=== PATIENT | female | born 1960 | race Caucasian/White ===

== ENCOUNTER 2016-10-16 14:42 | Outpatient (CLI) | payer MEDICARE | END 2016-10-16 14:43 | disposition home or self-care (01) | DX: R07.89 Other chest pain (principal); R06.02 Shortness of breath; R00.2 Palpitations; E78.00 Pure hypercholesterolemia, unspecified; R06.83 Snoring; F17.200 Nicotine dependence, unspecified, uncomplicated ==

== ENCOUNTER 2016-10-22 15:48 | Outpatient (CLI) | payer MEDICARE | END 2016-10-22 15:49 | disposition home or self-care (01) | DX: R23.3 Spontaneous ecchymoses (principal) ==

== ENCOUNTER 2016-10-31 14:31 | Outpatient (CLI) | payer MEDICARE | END 2016-10-31 14:32 | disposition home or self-care (01) | DX: L08.89 Other specified local infections of the skin and subcutaneous tissue (principal) ==

== ENCOUNTER 2016-11-27 10:11 | Outpatient (CLI) | payer MEDICARE | END 2016-11-27 10:12 | disposition home or self-care (01) | DX: R23.3 Spontaneous ecchymoses (principal) ==

== ENCOUNTER 2016-11-30 21:09 | Emergency (ER) | payer MEDICARE ==
[2016-11-30] MEDS ORDERED: ONDANSETRON 4 MG/2 ML VIAL IVP STA (21:28)
[2016-11-30] MEDS ORDERED: HYDROmorphone 1 MG/ML SYRINGE IVP STA (21:28)
[2016-11-30] MEDS ORDERED: SODIUM CHLORIDE 0.9% 1,000 ML IV ONE ×2 (21:28→21:36)
[2016-11-30] MEDS ORDERED: ONDANSETRON 4 MG/2 ML VIAL ONE (21:36)
[2016-11-30] MEDS ORDERED: HYDROmorphone 1 MG/ML SYRINGE ONE (21:36)
[2016-11-30] MEDS ORDERED: IOPAMIDOL-300 100 ML VIAL IVP ONE (22:35)
== END 2016-11-30 23:35 | disposition home or self-care (01) ==
DX: R10.30 Lower abdominal pain, unspecified (principal); R03.0 Elevated blood-pressure reading, without diagnosis of hypertension; K57.30 Diverticulosis of large intestine without perforation or abscess without bleeding; Z87.442 Personal history of urinary calculi; Z85.3 Personal history of malignant neoplasm of breast; F17.200 Nicotine dependence, unspecified, uncomplicated
CPT/HCPCS: 36415; 71275; 74174; 80053; 81003; 83690; 85025; 96361; 96374; 96375; 99284; 99285; J1170; Q9967

== ENCOUNTER 2016-12-04 09:23 | Outpatient (CLI) | payer MEDICARE | END 2016-12-04 09:24 | disposition home or self-care (01) | DX: R19.7 Diarrhea, unspecified (principal) ==

== ENCOUNTER 2017-01-06 15:09 | Outpatient (CLI) | payer MEDICARE | END 2017-01-06 15:10 | disposition home or self-care (01) | DX: J42 Unspecified chronic bronchitis (principal) ==

== ENCOUNTER 2017-05-06 09:47 | Outpatient (CLI) | payer MEDICARE ==
[2017-05-06 13:22] LABS: ALBUMIN/GLOBULIN RATIO 1.4 (1.0-2.2); BILIRUBIN,TOTAL 0.4 mg/dL (0.2-1.0); CALCIUM 9.2 mg/dL (8.5-10.3); CREATININE 0.6 mg/dL (0.4-1.0); POTASSIUM 4.1 mmol/L (3.5-5.0); TOTAL PROTEIN 7.7 g/dL (6.7-8.2)
[2017-05-06 13:26] LABS: BASOPHILS # (AUTO) 0.1 10^3/uL (0.0-0.1); BASOPHILS % (AUTO) 0.8 %; EOSINOPHILS # (AUTO) 0.1 10^3/uL (0.0-0.7); EOSINOPHILS % (AUTO) 1.5 %; HCT - HEMATOCRIT 41.7 % (37.0-47.0); HGB - HEMOGLOBIN 14.1 g/dL (12.0-16.0); LYMPHOCYTES # (AUTO) 1.4 10^3/uL (1.5-3.5); LYMPHOCYTES % (AUTO) 21.4 %; MEAN CORPUSCULAR HEMOGLOBIN 29.5 pg (27.0-31.0); MEAN CORPUSCULAR HGB CONC 33.9 g/dL (32.0-36.0); MEAN CORPUSCULAR VOLUME 86.9 fL (81.0-99.0); MEAN PLATELET VOLUME 8.5 fL (7.9-10.8); MONOCYTES # (AUTO) 0.4 10^3/uL (0.0-1.0); MONOCYTES % (AUTO) 6.3 %; NEUTROPHILS # (AUTO) 4.6 10^3/uL (1.5-6.6); RED CELL DISTRIBUTION WIDTH 13.9 % (12.0-15.0); UNCORRECTED WHITE BLOOD COUNT 6.5 x10^3/uL; WHITE BLOOD COUNT 6.5 x10^3/uL (4.8-10.8)
[2017-05-06 13:45] LABS: THYROID STIMULATING HORMONE 0.9 uIU/mL (0.34-5.60)
== END 2017-05-06 09:48 | disposition home or self-care (01) ==
LOC: LAB.N 09:47
PROVIDERS: ATTEND Family Medicine
DX: R19.7 Diarrhea, unspecified (principal); E03.9 Hypothyroidism, unspecified
CPT/HCPCS: 36415; 80053; 83630; 83690; 84439; 84443; 85025; 87045; 87046; 87493

== ENCOUNTER 2017-05-19 17:28 | Emergency (ER) | payer MEDICARE ==
--- NOTE | 2017-05-19 18:08 | ED Physician Documentation ---
PD HPI ABD PAIN - Stated complaint Stated Complaint: ABD PX/DIARRHEA - Chief complaint Chief Complaint: Abd Pain - History obtained from History obtained from: Patient - History of Present Illness Timing - onset: Other (She had a remote history of C. difficile. About 2 weeks ago developed abdominal pain in the left lower quadrant and diarrhea. She was seen in the office and had normal blood work, a stool sample with a negative culture and a negative C. difficile test. She was put on an antibiotic, I think cephalexin from her description. She continues to have increasing pain and strange diarrhea several times a day. There is some low-grade fever and aches with it as well. Of note she had a CT scan for another condition several months ago which did show colonic diverticula.) Review of Systems Ten Systems: 10 systems reviewed and negative Constitutional: reports: Fever, Myalgias, Fatigue Nose: denies: Rhinorrhea / runny nose, Congestion Cardiac: denies: Chest pain / pressure, Palpitations Respiratory: denies: Dyspnea, Cough GI: reports: Abdominal Pain, Nausea, Diarrhea. 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 : Kidney stones Psych: Depression - Past Surgical History Past Surgical History: Yes /AGRICULTURAL EDUCATION PROFESSOR: Tubal ligation, Other - Present Medications Home Medications: Ambulatory Orders Medication Instructions Recorded Confirmed Sertraline [Zoloft] 200 mg PO DAILY 07/02/13 11/30/16 Naproxen 500 mg PO .FREQ 07/02/15 11/30/16 Ciprofloxacin HCl [Cipro] 500 mg PO BID #14 tablet 05/19/17 Metronidazole [Flagyl] 500 mg PO TID #21 tablet 05/19/17 - Allergies Allergies/Adverse Reactions: Allergies Allergy/AdvReac Type Severity Reaction Status Date / Time Penicillins Allergy Itching Verified 05/19/17 17:36 Sulfa (Sulfonamide Allergy Unknown Verified 05/19/17 17:36 Antibiotics) - Social History Does the pt smoke?: Yes Smoking Status: Current every day smoker Does the pt drink ETOH?: No Does the pt have substance abuse?: No - Family History Family history: reports: Non contributory - Immunizations Immunizations are current?: No - POLST Patient has POLST: No PD ED PE NORMAL - Vitals Vital signs reviewed: Yes - General General: Alert and oriented X 3, No acute distress - HEENT HEENT: PERRL, EOMI - Neck Neck: Supple, no meningeal sign, No bony TTP - Cardiac Cardiac: RRR, No murmur - Respiratory Respiratory: No respiratory distress, Clear bilaterally - Abdomen Abdomen: Other (Hyperactive bowel tones, soft, focally tender in the left lower quadrant without surgical signs.) - Derm Derm: No rash - Extremities Extremities: No edema, No calf tenderness / cord - Neuro Neuro: Alert and oriented X 3, Normal speech - Psych Psych: Normal mood, Normal affect Results - Vitals Vitals: Vital Signs - 24 hr 05/19/17 05/19/17 17:30 21:02 Temperature 36.3 C L Heart Rate 88 83 Respiratory 18 18 Rate Blood Pressure 130/85 H 127/80 O2 Saturation 97 100 Oxygen O2 Source Room air - Labs Labs: Laboratory Tests 05/19/17 05/19/17 05/19/17 18:13 18:13 18:50 WBC 6.3 RBC 4.61 Hgb 13.5 Hct 39.6 MCV 86.0 MCH 29.4 MCHC 34.1 RDW 13.6 Plt Count 231 MPV 8.3 Neut # 4.4 Lymph # 0.9 L [place] # 0.6 Eos # 0.1 Baso # 0.2 H Absolute Nucleated RBC 0.00 Nucleated RBCs 0.1 Sodium 135 Potassium 3.8 Chloride 101 Carbon Dioxide 28 Anion Gap 6.0 BUN 11 Creatinine 0.6 Estimated GFR (MDRD) 104 Glucose 105 H Calcium 8.9 Total Bilirubin 0.5 AST 15 ALT 13 Alkaline Phosphatase 58 Total Protein 7.3 Albumin 4.1 Globulin 3.2 Albumin/Globulin Ratio 1.3 Lipase 22 Urine Color YELLOW Urine Clarity CLEAR Urine pH 6.0 Ur Specific [place] <=1.005 Urine Protein NEGATIVE Urine Glucose (UA) NEGATIVE Urine Ketones NEGATIVE Urine Occult Blood NEGATIVE Urine Nitrite NEGATIVE Urine Bilirubin NEGATIVE Urine Urobilinogen 0.2 (NORMAL) Ur Leukocyte Esterase NEGATIVE Ur Microscopic Review NOT INDICATED Urine Culture Comments NOT INDICATED - Rads (name of study) CT A/P Radiology: EMP read contemporaneously (Mild left colon diverticulitis without complication) PD MEDICAL DECISION MAKING - ED course ED course: 57-year-old woman with history of C. difficile and known diverticula presents with left lower quadrant pain and diarrhea that has failed treatment with a single PO Antibiotic, potentially Keflex but I am not 100% sure. Examination is most consistent with diverticulitis and this is proven on CT. She was unable to provide a stool sample here. Given recent negative C. difficile test I think it is unlikely that she has C. difficile in addition to diverticulitis. Departure - Departure Disposition: 01 Home, Self Care Clinical Impression: Diverticulitis of gastrointestinal tract Condition: Good Record reviewed to determine appropriate education?: Yes Instructions: Diverticulitis Dc Prescriptions: Ciprofloxacin HCl [Cipro] 500 mg PO BID #14 tablet Metronidazole [Flagyl] 500 mg PO TID #21 tablet Comments: Call your doctor to arrange a follow-up appointment, make the next available appointment. In the interim, return anytime if worse or if new symptoms develop. As discussed she will need to seek a referral for repeat colonoscopy in a few months. Your blood pressure was elevated today on check into the emergency department. This does not mean that you have hypertension, it is a common phenomenon to come to the emergency department and have elevated blood pressure. I recommend that she see your primary care physician within the week to have it rechecked when you are feeling better. Discharge Date/Time: 05/19/17 21:05
[2017-05-19 18:31] LABS: BASOPHILS # (AUTO) 0.2 10^3/uL (0.0-0.1); BASOPHILS % (AUTO) 3.9 %; EOSINOPHILS # (AUTO) 0.1 10^3/uL (0.0-0.7); EOSINOPHILS % (AUTO) 2.3 %; HCT - HEMATOCRIT 39.6 % (37.0-47.0); HGB - HEMOGLOBIN 13.5 g/dL (12.0-16.0); LYMPHOCYTES # (AUTO) 0.9 10^3/uL (1.5-3.5); LYMPHOCYTES % (AUTO) 13.6 %; MEAN CORPUSCULAR HEMOGLOBIN 29.4 pg (27.0-31.0); MEAN CORPUSCULAR HGB CONC 34.1 g/dL (32.0-36.0); MEAN PLATELET VOLUME 8.3 fL (7.9-10.8); MONOCYTES # (AUTO) 0.6 10^3/uL (0.0-1.0); MONOCYTES % (AUTO) 9.5 %; NEUTROPHILS # (AUTO) 4.4 10^3/uL (1.5-6.6); NEUTROPHILS % (AUTO) 70.7 %; NUCLEATED RED BLOOD CELLS AUTO 0.1 /100WBC; RED BLOOD COUNT 4.61 10^6/uL (4.20-5.40); RED CELL DISTRIBUTION WIDTH 13.6 % (12.0-15.0); UNCORRECTED WHITE BLOOD COUNT 6.3 x10^3/uL; WHITE BLOOD COUNT 6.3 x10^3/uL (4.8-10.8)
[2017-05-19 18:32] LABS: ALBUMIN/GLOBULIN RATIO 1.3 (1.0-2.2); BILIRUBIN,TOTAL 0.5 mg/dL (0.2-1.0); CALCIUM 8.9 mg/dL (8.5-10.3); CREATININE 0.6 mg/dL (0.4-1.0); POTASSIUM 3.8 mmol/L (3.5-5.0); TOTAL PROTEIN 7.3 g/dL (6.7-8.2)
[2017-05-19 19:25] LABS: BILIRUBIN,URINE NEGATIVE (NEGATIVE); UA CHARGE (STRIP ONLY) YES; UR CULTURE IF IND NOT INDICATED
[2017-05-19] MEDS ORDERED: IOPAMIDOL-300 100 ML VIAL IVP ONE (19:58)
--- NOTE | 2017-05-19 20:33 | CT Preliminary Report ---
Exam: CT Abdomen/Pelvis W/ IMPRESSION: CT findings likely business center representative of mild low left colon diverticulitis. There is no evid ence of perforation or pericolonic abscess. [facility] SITE ID: [id number]
--- NOTE | 2017-05-19 20:36 | CT Report ---
EXAM: CT ABDOMEN AND PELVIS EXAM DATE: 05/19/2017 08:00 PM. CLINICAL HISTORY: Abdominal pain COMPARISONS: None. TECHNIQUE: Routine helical CT imaging was performed through the abdomen and pelvis. IV contrast: Yes. Enteric contrast: No. Reconstructions: Coronal and sagittal. In accordance with CT protocol optimization, one or more of the following dose reduction techniques w ere utilized for this exam: automated exposure control, adjustment of mA and/or KV based on patient s ize, or use of iterative reconstructive technique. FINDINGS: Lung Bases: Unremarkable. Liver: Subcentimeter hypodensity within segment 8 of the liver is too small to characterize. No suspi cious hepatic abnormalities are seen. Gallbladder/Bile Ducts: Unremarkable. Spleen: Normal. Pancreas: Normal. Adrenal Glands: There is a subcentimeter left adrenal nodule. This most likely represents an adenoma. Kidneys: Normal. No masses or hydronephrosis. Peritoneal Cavity/Bowel: There is distal colon diverticulosis. There is mild fast draining adjacent t o the lower left colon. Stomach and small bowel demonstrate no acute abnormalities. No enlarged mesen teric or retroperitoneal lymph nodes. No intraperitoneal free air or free fluid. The appendix is well visualized and normal. Pelvic Organs: Normal. The bladder and visualized pelvic organs are within normal limits. Vasculature: No aneurysms or other significant abnormality. Bones: No significant abnormality. Other: None. IMPRESSION: CT findings likely accounts payable representative of mild low left colon diverticulitis. There is no evid ence of perforation or pericolonic abscess. [facility] Referring Provider Line: [phone] SITE ID: [id number]
[2017-05-19] MEDS ORDERED: CIPROFLOXACIN 250 MG TABLET PO STA (20:50)
[2017-05-19] MEDS ORDERED: metroNIDAZOLE 250 MG TABLET PO STA (20:50)
[2017-05-19] MEDS ORDERED: CIPROFLOXACIN 250 MG TABLET PO ONE (21:00)
[2017-05-19] MEDS ORDERED: metroNIDAZOLE 250 MG TABLET PO ONE (21:00)
[2017-05-19 21:02] VITALS: BP 127/80
== END 2017-05-19 21:05 | disposition home or self-care (01) ==
LOC: ED 17:28
DX: C50.919 Malignant neoplasm of unspecified site of unspecified female breast (principal); K57.92 Diverticulitis of intestine, part unspecified, without perforation or abscess without bleeding; R03.0 Elevated blood-pressure reading, without diagnosis of hypertension; F17.200 Nicotine dependence, unspecified, uncomplicated
CPT/HCPCS: 36415; 74177; 80053; 81003; 83690; 85025; 99283; 99284; A9270; Q9967; 81001; 87086

== ENCOUNTER 2017-08-21 13:31 | Outpatient (CLI) | payer MEDICARE ==
--- NOTE | 2017-08-26 14:01 | Mammography Report ---
DATE OF SERVICE: 08/21/2017 DIGITAL SCREENING MAMMOGRAM: 08/21/2017 CLINICAL INDICATION: A 57-year-old with personal history of left breast cancer status post lumpectom y and radiation therapy, family history of breast cancer, history of late childbearing for screening. COMPARISON: 08/2015, 03/2014, 01/2012, 12/2009. TECHNIQUE: Routine CC and MLO projections were obtained of the breasts. FINDINGS: The breasts again demonstrate heterogeneously dense fibroglandular parenchyma bilaterally. Coarse and punctate, typically benign calcifications are present. No suspicious masses, clustered microcalcifications, or regions of architectural distortion are identified. Postoperative and post-t reatment changes in the left breast are stable. IMPRESSION: Benign findings. RECOMMENDATIONS: Routine annual screening unless otherwise clinically indicated. BIRADS category 2 - Benign findings. STANDARD QUALIFYING STATEMENTS 1. This examination was reviewed with the aid of Computed-Aided Detection (CAD). 2. A negative or benign imaging report should not delay biopsy if clinically suspicious findings are present. Consider surgical consultation if warranted. More than 5% of cancers are not identified by imaging. 3. Dense breasts may obscure an underlying neoplasm. TD: 08/22/2017 22:25
== END 2017-08-21 13:32 | disposition home or self-care (01) ==
LOC: DI 13:31
PROVIDERS: ATTEND Nurse Practitioner Gerontology
DX: Z12.31 Encounter for screening mammogram for malignant neoplasm of breast (principal); Z85.3 Personal history of malignant neoplasm of breast; Z80.3 Family history of malignant neoplasm of breast
CPT/HCPCS: 77067

== ENCOUNTER 2017-09-25 08:00 | Outpatient (CLI) | payer MEDICARE ==
[2017-09-25 12:46] LABS: BASOPHILS # (AUTO) 0.1 10^3/uL (0.0-0.1); BASOPHILS % (AUTO) 0.9 %; EOSINOPHILS # (AUTO) 0.1 10^3/uL (0.0-0.7); EOSINOPHILS % (AUTO) 1.4 %; HGB - HEMOGLOBIN 14.4 g/dL (12.0-16.0); LYMPHOCYTES # (AUTO) 1.6 10^3/uL (1.5-3.5); LYMPHOCYTES % (AUTO) 27.6 %; MEAN CORPUSCULAR HEMOGLOBIN 29.7 pg (27.0-31.0); MEAN CORPUSCULAR HGB CONC 33.6 g/dL (32.0-36.0); MEAN CORPUSCULAR VOLUME 88.5 fL (81.0-99.0); MEAN PLATELET VOLUME 8.7 fL (7.9-10.8); MONOCYTES # (AUTO) 0.4 10^3/uL (0.0-1.0); NEUTROPHILS # (AUTO) 3.7 10^3/uL (1.5-6.6); NEUTROPHILS % (AUTO) 63.1 %; PLT - PLATELET COUNT 242 10^3/uL (130-450); RED BLOOD COUNT 4.84 10^6/uL (4.20-5.40); RED CELL DISTRIBUTION WIDTH 14.2 % (12.0-15.0); WHITE BLOOD COUNT 5.8 x10^3/uL (4.8-10.8)
[2017-09-25 13:30] LABS: CALCIUM 8.8 mg/dL (8.5-10.3); CREATININE 0.7 mg/dL (0.4-1.0)
== END 2017-09-25 08:01 | disposition home or self-care (01) ==
LOC: LAB.N 08:00
PROVIDERS: ATTEND Physician Assistant Medical
DX: R05 Cough (principal); F17.210 Nicotine dependence, cigarettes, uncomplicated; J20.9 Acute bronchitis, unspecified
CPT/HCPCS: 36415; 80048; 85025

== ENCOUNTER 2017-09-25 10:53 | Outpatient (CLI) | payer MEDICARE ==
--- NOTE | 2017-09-26 16:58 | XRAY Report ---
DATE OF SERVICE: 09/25/2017 TWO VIEW CHEST: 09/25/2017 CLINICAL INDICATION: Chronic cough. COMPARISON: 01/06/2017. FINDINGS: Frontal and lateral views of the chest demonstrate a normal cardiac silhouette. The lungs are clear. No effusion or pneumothorax is present. IMPRESSION: NORMAL CHEST. TD: 09/26/2017 16:57
== END 2017-09-25 10:54 | disposition home or self-care (01) ==
LOC: DI.N 10:53
PROVIDERS: ATTEND Physician Assistant Medical
DX: J20.9 Acute bronchitis, unspecified (principal); R05 Cough; F17.210 Nicotine dependence, cigarettes, uncomplicated
CPT/HCPCS: 36415; 71046; 80048; 85025

== ENCOUNTER → 2018-01-27 | Outpatient (CLI) | payer MEDICARE | LOC: RT.N 13:48 | PROVIDERS: ATTEND Nurse Practitioner Gerontology | DX: F41.9 Anxiety disorder, unspecified (principal); R07.89 Other chest pain | CPT/HCPCS: 93005 ==

== ENCOUNTER 2018-05-06 15:47 | Outpatient (CLI) | payer MEDICARE | END 2018-05-06 15:48 | disposition home or self-care (01) | LOC: RT.N 15:47 | PROVIDERS: ATTEND Nurse Practitioner Gerontology | DX: F41.9 Anxiety disorder, unspecified (principal); R07.89 Other chest pain ==

== ENCOUNTER 2018-06-11 09:04 | Outpatient (CLI) | payer MEDICARE | END 2018-06-11 09:05 | LOC: LAB.N 09:04 | PROVIDERS: ATTEND Physician Assistant Medical | DX: J20.9 Acute bronchitis, unspecified (principal); F17.210 Nicotine dependence, cigarettes, uncomplicated | CPT/HCPCS: 36415; 80048; 85025 ==

== ENCOUNTER 2018-11-05 08:00 | Outpatient (CLI) | payer MEDICARE ==
[2018-11-05 19:08] LABS: BASOPHILS # (AUTO) 0.1 10^3/uL (0.0-0.1); BASOPHILS % (AUTO) 0.9 %; EOSINOPHILS # (AUTO) 0.1 10^3/uL (0.0-0.7); HGB - HEMOGLOBIN 13.9 g/dL (12.0-16.0); LYMPHOCYTES # (AUTO) 2.3 10^3/uL (1.5-3.5); LYMPHOCYTES % (AUTO) 35.1 %; MEAN CORPUSCULAR HEMOGLOBIN 29.5 pg (27.0-31.0); MEAN CORPUSCULAR HGB CONC 33.3 g/dL (32.0-36.0); MEAN CORPUSCULAR VOLUME 88.7 fL (81.0-99.0); MEAN PLATELET VOLUME 8.9 fL (7.9-10.8); MONOCYTES # (AUTO) 0.5 10^3/uL (0.0-1.0); MONOCYTES % (AUTO) 6.9 %; NEUTROPHILS # (AUTO) 3.6 10^3/uL (1.5-6.6); NEUTROPHILS % (AUTO) 55.1 %; PLT - PLATELET COUNT 269 10^3/uL (130-450); WHITE BLOOD COUNT 6.6 x10^3/uL (4.8-10.8)
[2018-11-05 19:20] LABS: CALCIUM 9.2 mg/dL (8.5-10.3); CREATININE 0.5 mg/dL (0.4-1.0)
== END 2018-11-05 23:59 | disposition home or self-care (01) ==
LOC: LAB.N 08:00
PROVIDERS: ATTEND Physician Assistant Medical
DX: J20.9 Acute bronchitis, unspecified (principal); F17.210 Nicotine dependence, cigarettes, uncomplicated
CPT/HCPCS: 36415; 80048; 85025

== ENCOUNTER 2018-11-19 12:06 | Outpatient (CLI) | payer MEDICARE ==
--- NOTE | 2018-11-19 20:29 | XRAY Report ---
Reason: CHEST PRESSURE, COPD, ACUTE EXACERBATION Procedure Date: 11/19/2018 Accession Number: [id number] / [id number] Procedure: XR - Chest 2 View X-Ray CPT Code: 23213 FULL RESULT: EXAM: CHEST RADIOGRAPHY EXAM DATE: 11/19/2018 02:25 PM. CLINICAL HISTORY: COPD. Chest pressure and increasing shortness of breath for 1 week. COMPARISON: 09/25/2017. TECHNIQUE: 2 views. FINDINGS: Lungs/Pleura: No focal opacities evident. No pleural effusion. No pneumothorax. Normal volumes. Mediastinum: Heart and mediastinal contours are unremarkable. Other: None. IMPRESSION: Normal 2-view chest radiography. [facility]
== END 2018-11-19 12:07 | disposition home or self-care (01) ==
LOC: DI 12:06
PROVIDERS: ATTEND Family Medicine
DX: R07.89 Other chest pain (principal); J44.1 Chronic obstructive pulmonary disease with (acute) exacerbation
CPT/HCPCS: 71046

== ENCOUNTER 2019-02-02 08:00 | Outpatient (CLI) | payer MEDICARE ==
[2019-02-02 13:11] LABS: BASOPHILS % (AUTO) 0.8 %; EOSINOPHILS # (AUTO) 0.1 10^3/uL (0.0-0.7); EOSINOPHILS % (AUTO) 1.3 %; LYMPHOCYTES # (AUTO) 1.5 10^3/uL (1.5-3.5); LYMPHOCYTES % (AUTO) 29.6 %; MEAN CORPUSCULAR HEMOGLOBIN 29.2 pg (27.0-31.0); MEAN CORPUSCULAR HGB CONC 33.5 g/dL (32.0-36.0); MEAN CORPUSCULAR VOLUME 87.3 fL (81.0-99.0); MEAN PLATELET VOLUME 8.7 fL (7.9-10.8); MONOCYTES # (AUTO) 0.3 10^3/uL (0.0-1.0); MONOCYTES % (AUTO) 6.7 %; NEUTROPHILS % (AUTO) 61.6 %; PLT - PLATELET COUNT 223 10^3/uL (130-450); RED BLOOD COUNT 4.81 10^6/uL (4.20-5.40); WHITE BLOOD COUNT 4.9 x10^3/uL (4.8-10.8)
[2019-02-02 13:33] LABS: BUN - BLOOD UREA NITROGEN 15 mg/dL (6-20); CALCIUM 9.3 mg/dL (8.5-10.3); CARBON DIOXIDE - CO2 26 mmol/L (21-32); CHLORIDE 102 mmol/L (101-111); CREATININE 0.5 mg/dL (0.4-1.0); GFR - MDRD 128 (>89); GLUCOSE 92 mg/dL (70-100); SODIUM 139 mmol/L (135-145)
[2019-02-02 13:41] LABS: CRP - C-REACTIVE PROTEIN < 1.0 mg/dL (0-1.0)
[2019-02-02 13:44] LABS: HB2 TOTAL 14.9 g/dL; HEMOGLOBIN A1C 0.55 g/dL; HEMOGLOBIN A1C % 5.5 % (4.6-6.2)
== END 2019-02-02 23:59 | disposition home or self-care (01) ==
LOC: LAB.N 08:00
PROVIDERS: ATTEND Physician Assistant Medical
DX: R53.83 Other fatigue (principal); E03.9 Hypothyroidism, unspecified
CPT/HCPCS: 36415; 80048; 83036; 84443; 85025; 86140

== ENCOUNTER 2019-03-19 08:00 | Outpatient (CLI) | payer MEDICARE ==
[2019-03-19 13:43] LABS: H. PYLORIS ANTIGEN STL NEGATIVE (Negative)
== END 2019-03-19 23:59 | disposition home or self-care (01) ==
LOC: LAB.R 08:00
PROVIDERS: ATTEND Family Medicine
DX: R19.7 Diarrhea, unspecified (principal)
CPT/HCPCS: 81599; 82274; 83630; 87045; 87046; 87177; 87209; 87329; 87338; 87493

== ENCOUNTER 2019-04-12 14:21 | Outpatient (CLI) | payer MEDICARE ==
--- NOTE | 2019-04-12 15:10 | XRAY Report ---
Reason: PELVIC PAIN, COPD, ACUTE EXACERBATION, EARLY SATIE Procedure Date: 04/12/2019 Accession Number: [id number] / [id number] Procedure: XR - Chest 2 View X-Ray CPT Code: 22913 FULL RESULT: EXAM: CHEST RADIOGRAPHY EXAM DATE: 04/12/2019 02:42 PM. CLINICAL HISTORY: COPD, with acute exacerbation. Patient reports having bronchitis. Study is performed to evaluate for pneumonia. COMPARISON: CHEST 2 VIEW 11/19/2018 2:49 PM. TECHNIQUE: 2 views. FINDINGS: Lungs/Pleura: No focal opacities evident. No pleural effusion. No pneumothorax. Normal volumes. Mediastinum: Heart and mediastinal contours are unremarkable. Other: None. IMPRESSION: No radiographic evidence of acute cardiopulmonary disease. [facility]
--- NOTE | 2019-04-12 15:36 | Ultrasound Report ---
Reason: PELVIC PAIN Procedure Date: 04/12/2019 Accession Number: [id number] / [id number] Procedure: US - Pelvic w/Transvaginal CPT Code: FULL RESULT: EXAM: PELVIC ULTRASOUND EXAM DATE: 04/12/2019 02:43 PM. CLINICAL HISTORY: Pelvic pain. COMPARISON: ABDOMEN/PELVIS W/ 05/19/2017 7:50 PM. TECHNIQUE: Realtime transabdominal pelvic scan performed to identify the uterus and adnexa and as an overview of other pelvic structures, followed by transvaginal scan to provide greater detail of the uterus and adnexa, with static image documentation. FINDINGS: Uterus: 5.5 x 2.9 x 3.9 cm, volume 33 cc. Anteverted position. Normal overall size and echotexture. Masses: None. Endometrium: 10 mm. Heterogeneous, thickened endometrium. Cervix: Unremarkable. Ovary: Neither ovary was visualized due to bowel gas. Free Fluid: None. Other: None. IMPRESSION: 1. Heterogeneous, thickened endometrium in a postmenopausal woman. The finding is nonspecific, and significant pathology such as neoplasm cannot be excluded. [facility]
== END 2019-04-12 14:22 | disposition home or self-care (01) ==
LOC: DI 14:21
PROVIDERS: ATTEND Obstetrics & Gynecology
DX: R93.89 Abnormal findings on diagnostic imaging of other specified body structures (principal); J44.1 Chronic obstructive pulmonary disease with (acute) exacerbation; F17.200 Nicotine dependence, unspecified, uncomplicated; Z85.3 Personal history of malignant neoplasm of breast
CPT/HCPCS: 71046; 76830; 76856

== ENCOUNTER 2019-04-15 08:00 | Outpatient (CLI) | payer MEDICARE | END 2019-04-15 23:59 | disposition home or self-care (01) | LOC: LAB.N 08:00 | PROVIDERS: ATTEND Obstetrics & Gynecology | DX: R10.2 Pelvic and perineal pain (principal); R68.81 Early satiety; R19.8 Other specified symptoms and signs involving the digestive system and abdomen; Z85.3 Personal history of malignant neoplasm of breast | CPT/HCPCS: 36415; 82378; 86304 ==

== ENCOUNTER 2019-04-21 15:02 | Outpatient (CLI) | payer MEDICARE ==
[2019-04-21] MEDS ORDERED: IOVERSOL 320 50 ML VIAL ONE (15:16)
[2019-04-21] MEDS ORDERED: IOVERSOL 320 100 ML VIAL IVP ONE ×2 (15:16→16:19)
[2019-04-21] MEDS ORDERED: IOVERSOL 320 50 ML VIAL PO ONE (16:19)
--- NOTE | 2019-04-22 16:59 | CT Report ---
Reason: PELVIC PAIN, EARLY SATIETY, INCREASED ABD GIRTH Procedure Date: 04/21/2019 Accession Number: [id number] / [id number] Procedure: CT - Abdomen/Pelvis W CPT Code: FULL RESULT: EXAM: CT ABDOMEN AND PELVIS EXAM DATE: 04/21/2019 04:17 PM. CLINICAL HISTORY: PELVIC PAIN, EARLY SATIETY, INCREASED ABD GIRTH. COMPARISONS: ABDOMEN/PELVIS W/ 05/19/2017 7:50 PM ABDOMEN/PELVIS ANGIO 11/30/2016 10:20 PM. TECHNIQUE: Routine helical CT imaging was performed through the abdomen and pelvis. IV contrast: OPTI 320 100ML. Enteric contrast: Yes. Reconstructions: Coronal and sagittal. In accordance with CT protocol optimization, one or more of the following dose reduction techniques were utilized for this exam: automated exposure control, adjustment of mA and/or KV based on patient size, or use of iterative reconstructive technique. FINDINGS: Lung Bases: 3 mm right lung base nodule is unchanged when compared to 2017, 2 year stability implies benignity. Liver: Normal. No masses. Gallbladder/Bile Ducts: Unremarkable. Spleen: Normal. Pancreas: Normal. Adrenal Glands: Normal. Kidneys: An indeterminate 1.3 cm left renal hypodensity is essentially unchanged compared to 2017. No hydronephrosis on either side. Right kidney is unremarkable. Peritoneal Cavity/Bowel: There is extensive sigmoid diverticulosis without diverticulitis detected. There is no bowel obstruction. There is no free air or free fluid. There is no lymphadenopathy by size criteria. The appendix is well visualized and normal. Pelvic Organs: Normal. The bladder and visualized pelvic organs are within normal limits. Vasculature: No aneurysms or other significant abnormality. Bones: No significant abnormality. Other: None. IMPRESSION: Extensive diverticulosis with the etiology of the patient's symptoms not definitely identified. [facility]
== END 2019-04-21 15:03 | disposition home or self-care (01) ==
LOC: DI 15:02
PROVIDERS: ATTEND Obstetrics & Gynecology
DX: K57.30 Diverticulosis of large intestine without perforation or abscess without bleeding (principal); R10.2 Pelvic and perineal pain; R68.81 Early satiety; R19.8 Other specified symptoms and signs involving the digestive system and abdomen; Z85.3 Personal history of malignant neoplasm of breast; N81.9 Female genital prolapse, unspecified; R53.83 Other fatigue
CPT/HCPCS: 74177; Q9967

== ENCOUNTER 2019-04-30 12:00 | Day surgery (SDC) | payer MEDICARE ==
--- NOTE | 2019-04-29 18:08 | HISTORY & PHYSICAL EXAMINATION ---
HPI - History of Present Illness HPI Comment/Other: CC: PreOp HPI: Patient is a 59-year-old G2, P2 last seen in clinic on 04/12/2019 here for preop operative assessment for hysteroscopy, D&C, possible polypectomy and myomectomy. Ms. Martinez was last seen in clinic on 04/12/2019 with complaint of abdominal distention, early satiety, expanding abdominal girth. She has a history of breast cancer which treated with a left lumpectomy. She had underwent imaging to assess changes in her pelvic symptoms. Pelvic ultrasound showed an thickened endometrium of 12 mm. She is opting to undergo treatment with hysteroscopy D&C with possible polypectomy myomectomy. She has undergone a CT scan since her prior visit. No pelvic pathology was noted other than extensive diverticulosis without diverticulitis. We reviewed the report together. She continues to have diarrhea. Reports negative C. di fficile testing within the last week. She is also requesting breast cancer screening via MRI. She has a history of breast cancer that was missed on mammographic screening. It was identified only on MRI. She has extensive scarring from her prior lumpectomy and wants and feels that the mammogram will be inadequate for in terms of reassuring for recurrence of disease. Otherwise no changes in health history since time of prior exam Vital Signs: Patient Profile: 59 Years Old Female Height: 62 inches Weight: 148.9 pounds BMI: 27.33 Pt. in pain? no Vitals Entered By: Opal Hopson LPN (April 29, 2019 2:33 PM) Meds Reviewed: Done Allergies Reviewed: Done Past Medical History: Depression Osteoarthritis History of breast cancer, left lumpectomy 2010 IBS Dyslipidemia Tubal ligation Thyroidectomy 1999 Tobacco dependence Otitis media left Chronic bronchitis Burton's palsy COPD Past Surgical History: Thyroidectomy: benign nodule 2000 BTL: 1999 wisdom teeth extraction lumpectomy L breast: 2011 for breast ca SHIRT TURNER Review of Systems ROS Comments: As per HPI, otherwise remaining systems are negative. Physical Constitutional: alert, no acute distress. Skin: normal turgor, normal color, no rashes. Head: atraumatic, normocephalic. Cardiovascular: RRR. Respiratory: no respiratory distress, clear to auscultation. Abdomen: Distended and nontender Neurologic: normal. Psych: affect and mood appropriate, normal interaction, good eye contact. Vulva: Vulva: normal appearance, no lesions or masses. Urethra: normal, no masses. Bladder: normal, no masses. Vagina: Stage III rectocele and stage II cystocele otherwise normal with pale mucosa with mild atrophic changes Cervix: normal, no motion tenderness, no lesions. Uterus: mobile, non-tender. Mild prolapse Adnexa: normal, no masses. Rectum: no masses, rectovaginal septum intact Impression & Recommendations: Problem # 1: Preop exam (ICD-V72.84) (ESF52-J65.818) Orders: PRE OP - (CPT-55347) Preoperative examination for hysteroscopy D&C, possible polypectomy/myomectomy Risks benefits and alternatives were discussed. All surgical procedures, risks of bleeding, infection, damage nearby tissue and organs. -In terms of bleeding risk is relatively low. We reviewed did consent for blood transfusion. Risks of infection and transfusion reaction were discussed.Consent was obtained -Reviewed ACOG guidelines regarding prophylactic antibiotics prior to procedure. This procedure is low risk and does not require prior antibiotics prophylaxis. Should uterine perforation occur she will be administered antibiotics. -Reviewed risk of damage to nearby tissue and organs, most likely recur with uterine perforation. Reviewed likelihood of perforation as well as management postoperatively. We also reviewed limitations on fluid deficit and other general potential complications. Consent was obtained for hysteroscopy, D&C, possible polypectomy and myomectomy. Problem # 2: Diverticulosis (ICD-562.10) (OGP40-T00.90) Reviewed CT scan showing intensive diverticulosis without diverticulitis. Pelvic symptoms including increasing abdominal distention continue to worsen. Referral for GI was submitted. Orders: Referral to cellular equipment installer ([facility]-[id number]) PRE OP - (CPT-93082) Problem # 3: History of breast cancer (ICD-V10.3) (RAL78-I07.3) Orders: MRI Breast Bilateral with or without Contrast (CPT-54639) MRI Breast Bilateral with or without Contrast (CPT-36100) Referral for mammogram mammography was submitted last visit. Ms. Martinez voices are concerned that her prior cancer was missed on mammography due to fibroglandular breast disease/dense breasts. She also has significant scarring from her prior lumpectomy. Wants to proceed with follow-up via breast MRI. Referral was submitted. PMH/PSH - Past Medical History Cardiovascular: positive: None Respiratory: positive: COPD Endocrine/Autoimmune: positive: Other GI: positive: Ulcerative colitis, Other SHIRT TURNER: positive: Breast cancer : positive: Kidney stones HEENT: positive: Chronic hearing loss Psych: positive: Depression, Other Musculoskeletal: positive: Osteoarthritis Derm: positive: None MRSA Hx?: No - Past Surgical History /SHIRT TURNER: positive: Tubal ligation, Other Social & Family Hx - Social History Does the pt smoke?: Yes Smoking Status: Current every day smoker Does the pt drink ETOH?: No Does the pt have substance abuse?: No - POLST Patient has POLST: No Meds/Allgy - Home Medications Home Medications: Ambulatory Orders Medication Instructions Recorded Confirmed Sertraline [Zoloft] 100 mg PO DAILY 07/02/13 04/29/19 Naproxen 500 mg PO .FREQ 07/02/15 04/29/19 - Allergies Allergies/Adverse Reactions: Allergies Allergy/AdvReac Type Severity Reaction Status Date / Time doxycycline Allergy "boils" Verified 04/29/19 15:37 Penicillins Allergy Itching Verified 05/19/17 17:36 Sulfa (Sulfonamide Allergy Unknown Verified 05/19/17 17:36 Antibiotics) [email or web address] [From Chantix] Allergy suicidal Verified 04/29/19 15:37
[~2019-04-30 12:00] MED LIST: LIDOCAINE 1%-EPI 1:100000 20 ML MDV ONE
[2019-04-30] MEDS ORDERED: DEXAMETHASONE 4 MG/ML VIAL IVP ONE (12:01)
[2019-04-30] MEDS ORDERED: PROPOFOL 200 MG/20 ML VIAL IVP ONE (12:01)
[2019-04-30] MEDS ORDERED: fentaNYL 100 MCG/2 ML VIAL IVP ONE (12:01)
[2019-04-30] MEDS ORDERED: MIDAZOLAM 2 MG/2 ML VIAL IVP ONE (12:01)
[2019-04-30] MEDS ORDERED: KETOROLAC 30 MG/ML VIAL IVP ONE (12:01)
[2019-04-30] MEDS ORDERED: ONDANSETRON 4 MG/2 ML VIAL IVP ONE (12:01)
[2019-04-30] MEDS ORDERED: ePHEDrine 50 MG/ML VIAL IVP ONE (12:01)
[2019-04-30] MEDS ORDERED: LACTATED RINGERS 1,000 ML IV ONE ×2 (12:08→14:09)
--- NOTE | 2019-04-30 12:52 | ANESTHESIA ---
Pre-Anesthesia VS, & Labs - Diagnosis thickened endometrium - Procedure hysterscopy D&C with possible polypectomy/myomectomy Vital Signs: Temp Pulse Resp BP Pulse Ox 36.2 C L 78 16 129/83 H 95 04/30/19 12:17 04/30/19 12:17 04/30/19 12:17 04/30/19 12:17 04/30/19 12:17 Height 5 ft 2 in Weight (kg) 66 kg Body Mass Index 26.5 - NPO >8 hours - Is Patient ?: No Home Medications and Allergies Sertraline [Zoloft] 100 mg PO DAILY 07/02/13 Naproxen 500 mg PO .FREQ 07/02/15 Allergies/Adverse Reactions: Allergies Allergy/AdvReac Type Severity Reaction Status Date / Time doxycycline Allergy "boils" Verified 04/29/19 15:37 Penicillins Allergy Itching Verified 05/19/17 17:36 Sulfa (Sulfonamide Allergy Unknown Verified 05/19/17 17:36 Antibiotics) [email or web address] [From Chantix] Allergy suicidal Verified 04/29/19 15:37 Anes History & Medical History - Anesthetic History Anesthesia Complications: reports: No previous complications - Medical History Cardiovascular: reports: None Pulmonary: reports: COPD Gastrointestinal: reports: Other (diverticulitis) Urinary: reports: None, Kidney stones Neuro: reports: None Musculoskeletal: reports: Osteoarthritis 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) Blood Disorders: reports: None Skin: reports: None Smoking Status: Current every day smoker (1pk/day for 40) Psychosocial: reports: Depression - Surgical History Gynecologic: Tubal ligation, Other Exam General: Alert, Oriented x3, Cooperative, No acute distress Dental: Poor dentition Mouth Openin Fingerbreadth Neck Mobility: Normal Mallampati classification: II Thyromental Distance: greater than 6 cm Respiratory: Lungs clear, Normal breath sounds, No respiratory distress, No accessory muscle use Cardiovascular: Regular rate, Normal S1, Normal S2, No murmurs Mental/Cognitive Status: Alert/Oriented X3, Normal for patient Plan Anesthesia Type: General Consent for Procedure(s) Verified and Reviewed: Yes Code Status: Attempt Resuscitation ASA classification: 2-Mild systemic disease Is this case an emergency?: No
[2019-04-30] MEDS ORDERED: HYDROmorphone 0.5 MG/0.5 ML SYRINGE ONE (14:24)
--- NOTE | 2019-04-30 14:31 | OPERATIVE REPORT ---
Operative Report - General Procedure Date: 04/30/19 Planned Procedure: Hysteroscopy D&C, possible polypectomy, possible myomectomy Pre-Op Diagnosis: Thickened endometrium Procedure Performed: Hysteroscopic D&C and polypectomy Post Op Diagnosis: Same and an endometrial polyp - Procedure Note Primary Surgeon: Reyna Hazel MD Anesthesia Provider: Harris Kumar CRNA Anesthesia Technique: General ET tube Pathology: Uterine contents Estimated Blood Loss (mL): 5 Urine Output (mL): 100 (In and out catheterization at start of procedure) Indications: Ms. Martinez is a 59-year-old postmenopausal woman with terminal distention and early satiety. Evaluation included pelvic ultrasound, which showed a thickened endometrium. She presents today for hysteroscopic evaluation and possible polypectomy, myomectomy and D&C. Findings: Large endometrial polyp encompassing all of the uterine cavity. Normal uterus with bilateral fallopian tubal ostia noted once polyp was cleared from the uterus Complications: None - Other Other Information/Narrative: Risks benefits and alternatives the procedure were discussed. Written informed consent was again confirmed. Patient was taken to the operating room where she underwent general anesthesia. She was placed in dorsal lithotomy with legs resting in yellowfin stirrups. She is prepped and draped in the usual sterile fashion. SCDs were in place. Bladder was drained of 100 cc via in and out catheterization. Antibiotics were not indicated. Presurgical timeout was performed. Sterile speculum was placed after bimanual exam. Cervix was visualized and single-tooth tenaculum was placed in the anterior cervical lip. A total of 10 cc of 1% lidocaine with 1/100,000 epinephrine was injected and at 4:00 and 8:00 immediately lateral to the cervical portio. The cervical os was serially dilated with Hegar dilators. Due to some mild cervical stenosis, a total of 6 cc 10units vasopressin/50 cc NS was injected into the cervix. Cervical os was then successfully dilated enough to accommodate the diagnostic hysteroscope. The diagnostic hysteroscope was inserted into the uterus with the findings noted above. The MyoSure hysteroscopic morcellator was inserted and the polyp was morcellated under direct visualization. D&C was performed with the morcellator under direct visualization. Uterine cavity cleared of pathology, concluding the procedure with an empty cavity. Bilateral tubal ostia visualized at close of procedure. Hysteroscope was removed. Tenaculum was removed from the cervix. Good hemostasis was noted fluid deficit was 380 cc of normal saline. EBL is minimal. Procedure was well-tolerated without complication.
[2019-04-30 15:00] VITALS: BP 129/73
== END 2019-04-30 12:01 | disposition home or self-care (01) ==
LOC: SDS 12:00
PROVIDERS: ATTEND Obstetrics & Gynecology
PROC: 0UDB8ZX Extraction of Endometrium, Via Natural or Artificial Opening Endoscopic, Diagnostic (ICD-10-PCS; 2019-04-30)
PROC: 0UB98ZZ Excision of Uterus, Via Natural or Artificial Opening Endoscopic (ICD-10-PCS; principal; 2019-04-30 13:00)
DX: N84.0 Polyp of corpus uteri (principal); J44.9 Chronic obstructive pulmonary disease, unspecified; E78.5 Hyperlipidemia, unspecified; K58.9 Irritable bowel syndrome, unspecified; K57.30 Diverticulosis of large intestine without perforation or abscess without bleeding; K62.3 Rectal prolapse; N81.10 Cystocele, unspecified; N88.2 Stricture and stenosis of cervix uteri; F17.210 Nicotine dependence, cigarettes, uncomplicated; E89.0 Postprocedural hypothyroidism; F32.9 Major depressive disorder, single episode, unspecified; F41.9 Anxiety disorder, unspecified; M19.90 Unspecified osteoarthritis, unspecified site; Z85.3 Personal history of malignant neoplasm of breast; H91.90 Unspecified hearing loss, unspecified ear; Z79.51 Long term (current) use of inhaled steroids
CPT/HCPCS: 58558; J1170; J7120

== ENCOUNTER 2019-06-10 09:43 | Emergency (ER) | payer MEDICARE ==
--- NOTE | 2019-06-10 10:28 | ED Physician Documentation ---
History of Present Illness - Stated complaint Stated Complaint: NAUSEA/WEAK - Chief complaint Chief Complaint: Abd Pain - History obtained from History obtained from: Patient - History of Present Illness Timing: How many weeks ago (10) - Additonal information Additional information: 59-year-old female is begin to have some abdominal bloating and pain associated with eating in February of this year. She has had some fatigue and diarrhea and she has been into see the doctor she is been into see the primary care physician they have ordered a HIDA scan of her gallbladder and apparently she has about a 4% ejection fraction. She saw Dr. Kelly yesterday and was scheduled to have her gallbladder out in about a month. She feels that this was devastating news to her and that she felt that maybe she was going to get some relief and she wonders if her mental status is was making her feel worse today than usual. She is feeling fatigued nauseous and weak. Review of Systems Constitutional: reports: Myalgias, Fatigue, Sweats. denies: Fever Eyes: denies: Photophobia Ears: denies: Ear pain Nose: denies: Reviewed and negative Throat: denies: Sore throat Cardiac: denies: Chest pain / pressure, Palpitations Respiratory: denies: Dyspnea, Cough GI: reports: Abdominal Pain, Abdominal Swelling, Nausea, Diarrhea. 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, Kidney stones Psych: Depression - Past Surgical History Past Surgical History: Yes /SALES PRODUCER: Tubal ligation, Other - Present Medications Home Medications: Ambulatory Orders Medication Instructions Recorded Confirmed Sertraline [Zoloft] 100 mg PO DAILY 07/02/13 04/30/19 Naproxen 500 mg PO .FREQ 07/02/15 04/29/19 - Allergies Allergies/Adverse Reactions: Allergies Allergy/AdvReac Type Severity Reaction Status Date / Time doxycycline Allergy "boils" Verified 06/10/19 09:58 Penicillins Allergy Itching Verified 06/10/19 09:58 Sulfa (Sulfonamide Allergy Unknown Verified 06/10/19 09:58 Antibiotics) varenicline [From Chantix] Allergy suicidal Verified 06/10/19 09:58 - Social History Does the pt smoke?: Yes Smoking Status: Current every day smoker (1pk/day for 40) Does the pt drink ETOH?: No Does the pt have substance abuse?: No - Immunizations Immunizations are current?: No - POLST Patient has POLST: No PD ED PE NORMAL - Vitals Vital signs reviewed: Yes (hypertensive ) - General General: Alert and oriented X 3, No acute distress, Well developed/nourished - HEENT HEENT: Atraumatic, PERRL, EOMI - Neck Neck: Supple, no meningeal sign - Cardiac Cardiac: RRR, No murmur - Respiratory Respiratory: No respiratory distress, Clear bilaterally - Abdomen Abdomen: Normal bowel sounds, Soft, Non tender, Non distended, No organomegaly - Back Back: No CVA TTP, No spinal TTP - Derm Derm: Normal color, Warm and dry, No rash - Extremities Extremities: No deformity, No edema - Neuro Neuro: Alert and oriented X 3, 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, No motor deficit, No sensory deficit, Normal speech Eye Opening: Spontaneous Motor: Obeys Commands Verbal: Oriented GCS Score: 15 - Psych Psych: Normal affect, Other (mood is defeated) Results - Vitals Vitals: Vital Signs - 24 hr 06/10/19 06/10/19 09:50 11:45 Temperature 36.8 C 36.5 C Heart Rate 84 74 Respiratory 16 16 Rate Blood Pressure 135/80 H 133/57 H O2 Saturation 95 97 Oxygen O2 Source Room air - Labs Labs: Laboratory Tests 06/10/19 06/10/19 06/10/19 10:33 10:33 10:44 WBC 5.6 RBC 5.00 Hgb 14.7 Hct 45.3 MCV 90.6 MCH 29.4 MCHC 32.5 RDW 13.2 Plt Count 254 MPV 9.5 Neut # (Auto) 3.8 Lymph # (Auto) 1.4 L Archer # (Auto) 0.3 Eos # (Auto) 0.1 Baso # (Auto) 0.0 Absolute Nucleated RBC 0.00 Nucleated RBC % 0.0 Sodium 139 Potassium 3.9 Chloride 102 Carbon Dioxide 28 Anion Gap 9.0 BUN 13 Creatinine 0.6 Estimated GFR (MDRD) 103 Glucose 99 Calcium 9.3 Total Bilirubin 0.5 AST 17 ALT 19 Alkaline Phosphatase 55 Total Protein 7.8 Albumin 4.6 Globulin 3.2 Albumin/Globulin Ratio 1.4 Lipase 29 Urine Color YELLOW Urine Clarity CLEAR Urine pH 7.5 Ur Specific [place] 1.010 Urine Protein NEGATIVE Urine Glucose (UA) NEGATIVE Urine Ketones NEGATIVE Urine Occult Blood NEGATIVE Urine Nitrite NEGATIVE Urine Bilirubin NEGATIVE Urine Urobilinogen 0.2 (NORMAL) Ur Leukocyte Esterase NEGATIVE Ur Microscopic Review NOT INDICATED Urine Culture Comments NOT INDICATED Procedures - IVC sono (time) 1020 Bedside IVC sono: IVC measures (cm) (1.09), IVC collapsed c insp (cm) (complete), Dehydration (est 1- 2 liter deficit) PD MEDICAL DECISION MAKING - ED course Complexity details: reviewed results, re-evaluated patient, considered differential, d/w patient ED course: 59-year-old female is been having some issues with her digestion since February of this year has had a HIDA scan showing a 4% ejection fraction of her gallbladder. She has persistence of nausea and abdominal distention and she is here not feeling well. Here in the emergency department she is found to be dehydrated and she is administered a liter of saline. Her electrolytes are unremarkable. The patient does exhibit some frustration over her symptoms and she was really hoping getting the gallbladder out would help her pains. When there was a delay in the date of surgery for a month the patient has become anxious. I did make things worse by telling her getting the gallbladder out may not resolve her symptoms. The patient has chronic diarrhea and she is dehydrated. Departure - Departure Disposition: 01 Home, Self Care Clinical Impression: Dehydration Condition: Stable Instructions: ED Dehydration Follow-Up: NIURKA BOOTHE MD [Primary Care Provider] - Discharge Date/Time: 06/10/19 12:05
[2019-06-10] MEDS ORDERED: SODIUM CHLORIDE 0.9% 1,000 ML IV ONE (10:29)
[2019-06-10 10:38] LABS: BASOPHILS % (AUTO) 0.5 %; EOSINOPHILS # (AUTO) 0.1 10^3/uL (0.0-0.7); EOSINOPHILS % (AUTO) 1.3 %; HGB - HEMOGLOBIN 14.7 g/dL (12.0-16.0); LYMPHOCYTES # (AUTO) 1.4 10^3/uL (1.5-3.5); LYMPHOCYTES % (AUTO) 25.5 %; MEAN CORPUSCULAR HEMOGLOBIN 29.4 pg (27.0-31.0); MEAN CORPUSCULAR HGB CONC 32.5 g/dL (32.0-36.0); MEAN CORPUSCULAR VOLUME 90.6 fL (81.0-99.0); MEAN PLATELET VOLUME 9.5 fL (7.9-10.8); MONOCYTES # (AUTO) 0.3 10^3/uL (0.0-1.0); MONOCYTES % (AUTO) 5.2 %; NEUTROPHILS # (AUTO) 3.8 10^3/uL (1.5-6.6); NEUTROPHILS % (AUTO) 67.3 %; PLT - PLATELET COUNT 254 10^3/uL (130-450); RED CELL DISTRIBUTION WIDTH 13.2 % (12.0-15.0); WHITE BLOOD COUNT 5.6 x10^3/uL (4.8-10.8)
[2019-06-10 10:52] LABS: ALBUMIN 4.6 g/dL (3.2-5.5); ALBUMIN/GLOBULIN RATIO 1.4 (1.0-2.2); BILIRUBIN,TOTAL 0.5 mg/dL (0.2-1.0); CALCIUM 9.3 mg/dL (8.5-10.3); CREATININE 0.6 mg/dL (0.4-1.0); TOTAL PROTEIN 7.8 g/dL (6.7-8.2)
[2019-06-10 10:59] LABS: BILIRUBIN,URINE NEGATIVE (NEGATIVE); GLUCOSE, URINE (UA) NEGATIVE (NEGATIVE); KETONES,URINE (UA) NEGATIVE (NEGATIVE); LEUKOCYTE ESTERASE, URINE NEGATIVE (NEGATIVE); NITRITE,URINE NEGATIVE (NEGATIVE); OCCULT BLOOD,URINE NEGATIVE (NEGATIVE); PH,URINE 7.5 PH (5.0-7.5); PROTEIN,URINE NEGATIVE (NEGATIVE); UROBILINOGEN,URINE 0.2 (NORMAL) E.U./dL (NORMAL)
[2019-06-10 11:00] LABS: CLARITY,URINE CLEAR (CLEAR)
[2019-06-10 11:46] VITALS: BP 133/57
== END 2019-06-10 12:05 | disposition home or self-care (01) ==
LOC: ED 09:43
DX: E86.0 Dehydration (principal); K52.9 Noninfective gastroenteritis and colitis, unspecified; F17.210 Nicotine dependence, cigarettes, uncomplicated
CPT/HCPCS: 36415; 80053; 81001; 81003; 83690; 85025; 87086; 96360; 99284

== ENCOUNTER 2019-06-21 11:09 | Day surgery (SDC) | payer MEDICARE ==
[2019-06-21] MEDS ORDERED: levoFLOXacin 500 MG/100 ML 500 MG/100 ML BAG IV ONE (11:23)
[2019-06-21 11:36] VITALS: BP 133/77
== END 2019-06-21 11:10 | disposition home or self-care (01) ==
LOC: SDS 11:09
PROVIDERS: ATTEND Surgery
DX: K82.8 Other specified diseases of gallbladder (principal); Z53.9 Procedure and treatment not carried out, unspecified reason

== ENCOUNTER 2019-12-01 15:02 | Outpatient (CLI) | payer MEDICARE | END 2019-12-01 15:03 | disposition home or self-care (01) | LOC: COV 15:02 | PROVIDERS: ATTEND Family Medicine | DX: R05 Cough (principal); R50.9 Fever, unspecified | CPT/HCPCS: 81599 ==

== ENCOUNTER 2020-04-21 07:00 | Outpatient (CLI) | payer MEDICARE ==
[2020-04-21 17:59] LABS: BILIRUBIN,URINE NEGATIVE (NEGATIVE); GLUCOSE, URINE (UA) NEGATIVE (NEGATIVE); KETONES,URINE (UA) NEGATIVE (NEGATIVE); LEUKOCYTE ESTERASE, URINE NEGATIVE (NEGATIVE); NITRITE,URINE NEGATIVE (NEGATIVE); OCCULT BLOOD,URINE NEGATIVE (NEGATIVE); PROTEIN,URINE NEGATIVE (NEGATIVE); UROBILINOGEN,URINE 0.2 (NORMAL) E.U./dL (NORMAL)
[2020-04-21 18:07] LABS: CLARITY,URINE CLEAR (CLEAR)
== END 2020-04-21 23:59 | disposition home or self-care (01) ==
LOC: LAB.R 07:00
PROVIDERS: ATTEND Physician Assistant
DX: R35.0 Frequency of micturition (principal)
CPT/HCPCS: 81001; 81003; 87086

== ENCOUNTER 2020-05-04 07:00 | Outpatient (CLI) | payer MEDICARE ==
[2020-05-04 18:30] LABS: BASOPHILS % (AUTO) 0.7 %; EOSINOPHILS # (AUTO) 0.2 10^3/uL (0.0-0.7); EOSINOPHILS % (AUTO) 3.2 %; HGB - HEMOGLOBIN 13.1 g/dL (12.0-16.0); LYMPHOCYTES # (AUTO) 1.9 10^3/uL (1.5-3.5); LYMPHOCYTES % (AUTO) 34.6 %; MEAN CORPUSCULAR HEMOGLOBIN 29.1 pg (27.0-31.0); MEAN CORPUSCULAR HGB CONC 31.4 g/dL (32.0-36.0); MEAN CORPUSCULAR VOLUME 92.7 fL (81.0-99.0); MEAN PLATELET VOLUME 10.2 fL (7.9-10.8); MONOCYTES # (AUTO) 0.4 10^3/uL (0.0-1.0); NEUTROPHILS % (AUTO) 54.3 %; PLT - PLATELET COUNT 289 10^3/uL (130-450); RED CELL DISTRIBUTION WIDTH 13.3 % (12.0-15.0); WHITE BLOOD COUNT 5.6 x10^3/uL (4.8-10.8)
[2020-05-04 19:02] LABS: ALBUMIN 4.2 g/dL (3.2-5.5); ALBUMIN/GLOBULIN RATIO 1.4 (1.0-2.2); BILIRUBIN,TOTAL 0.3 mg/dL (0.2-1.0); CALCIUM 9.1 mg/dL (8.5-10.3); CREATININE 0.6 mg/dL (0.4-1.0); TOTAL PROTEIN 7.1 g/dL (6.7-8.2)
[2020-05-04 19:18] LABS: FOLATE 11.79 ng/mL (5.90 - >24.8)
== END 2020-05-04 23:59 | disposition home or self-care (01) ==
LOC: LAB.WCP 07:00
PROVIDERS: ATTEND Family Medicine
DX: Z00.00 Encounter for general adult medical examination without abnormal findings (principal); J44.9 Chronic obstructive pulmonary disease, unspecified; E03.9 Hypothyroidism, unspecified; K58.9 Irritable bowel syndrome, unspecified; R53.83 Other fatigue
CPT/HCPCS: 36415; 80053; 82306; 82607; 82746; 84443; 85025

== ENCOUNTER 2020-05-19 14:50 | Outpatient (CLI) | payer MEDICARE ==
--- NOTE | 2020-05-22 13:39 | Mammography Report ---
BILATERAL DIGITAL SCREENING MAMMOGRAM 3D/2D: 05/19/2020 CLINICAL: Routine screening. Personal history of left breast cancer. Family history of breast cancer. Comparison is made to exams dated: 08/21/2017 mammogram, 09/21/2015 mammogram, and 04/13/2014 mammogra m - [facility]. The tissue of both breasts is extremely dense, which lowers the se nsitivity of mammography. There are benign post operative findings in the left breast. No significant masses, calcifications, or other findings are seen in either breast. There has been no significant interval change. IMPRESSION: BENIGN There is no mammographic evidence of malignancy. A 1 year screening mammogram is recommended. This exam was interpreted at Station ID: [id number]. NOTE: For mammograms, a report in lay terms will be sent to the patient. Approximately 15% of breast malignancies will not be visualized mammographically. In the management of a palpable breast mass, a negative mammogram must not discourage biopsy of a clinically suspicious lesion. Electronically Signed By: Mitchell Meza M.D. [facility] [place]:05/19/2020 17:14:19 ACR BI-RADS Category 2: Benign Finding(s) 3342F PARENCHYMAL PATTERN: (VD) - The breast(s) demonstrate(s) extremely dense parenchyma, limiting the sen sitivity of mammography. BI-RADS CATEGORY: (2) - 2 RECOMMENDATION: (ANNUAL) - Recommend routine annual screening mammography. [id number] 1 year screening LATERALITY: (B)
== END 2020-05-19 14:51 | disposition home or self-care (01) ==
LOC: DI.N 14:50
DX: Z12.31 Encounter for screening mammogram for malignant neoplasm of breast (principal); Z80.3 Family history of malignant neoplasm of breast; Z85.3 Personal history of malignant neoplasm of breast
CPT/HCPCS: 77063; 77067

== ENCOUNTER 2020-06-15 14:37 | Outpatient (CLI) | payer MEDICARE | END 2020-06-15 23:59 | disposition home or self-care (01) | LOC: LAB.R 14:37 | PROVIDERS: ATTEND Internal Medicine | DX: J06.9 Acute upper respiratory infection, unspecified (principal); Z20.828 Contact with and (suspected) exposure to other viral communicable diseases ==

== ENCOUNTER 2020-07-26 15:00 | Outpatient (CLI) | payer MEDICARE | END 2020-07-26 23:59 | disposition home or self-care (01) | LOC: LAB.S 15:00 | PROVIDERS: ATTEND Nurse Practitioner | DX: J20.8 Acute bronchitis due to other specified organisms (principal); Z20.828 Contact with and (suspected) exposure to other viral communicable diseases | CPT/HCPCS: 87275; 87276; U0004 ==

== ENCOUNTER 2020-10-25 21:11 | Outpatient (CLI) | payer SELFPAY | END 2020-10-25 21:12 | disposition home or self-care (01) | LOC: COV 21:11 | PROVIDERS: ATTEND Family Medicine | DX: R50.9 Fever, unspecified (principal); R07.0 Pain in throat; R09.81 Nasal congestion; J34.89 Other specified disorders of nose and nasal sinuses; Z20.822 Contact with and (suspected) exposure to COVID-19 ==

== ENCOUNTER 2020-11-24 12:58 | Emergency (ER) | payer SELFPAY ==
[2020-11-24 13:17] LABS: BILIRUBIN,URINE NEGATIVE (NEGATIVE); GLUCOSE, URINE (UA) NEGATIVE (NEGATIVE); KETONES,URINE (UA) NEGATIVE (NEGATIVE); LEUKOCYTE ESTERASE, URINE NEGATIVE (NEGATIVE); NITRITE,URINE NEGATIVE (NEGATIVE); OCCULT BLOOD,URINE TRACE-INTA (NEGATIVE); PH,URINE 5.5 PH (5.0-7.5); PROTEIN,URINE NEGATIVE (NEGATIVE); UROBILINOGEN,URINE 0.2 (NORMAL) E.U./dL (NORMAL)
[2020-11-24 13:18] LABS: CLARITY,URINE CLEAR (CLEAR)
--- NOTE | 2020-11-24 13:32 | ED Physician Documentation ---
History of Present Illness - Stated complaint Stated Complaint: ABD/LEG PX - Chief complaint Chief Complaint: Abd Pain - History obtained from History obtained from: Patient - History of Present Illness Timing: Other (several months) Pain level max: 6 Pain level now: 5 - Additonal information Additional information: 60-year-old female presents to the emergency department with right hip pain for the past 3 to 4 months. Worse with walking and bending. Better with rest. Denies any injury. No falls. Better with meloxicam. No fevers. No chills. No abdominal pain. No diarrhea. No constipation. She states it was worse this morning with bending down. 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 : Kidney stones HEENT: Chronic hearing loss Psych: Depression, Anxiety Musculoskeletal: Osteoarthritis Derm: None - Past Surgical History Past Surgical History: Yes General: Other /CLOTH CLASSER: Dilation and currettage, Tubal ligation, Other - Present Medications Home Medications: Ambulatory Orders Medication Instructions Recorded Confirmed Sertraline [Zoloft] 100 mg PO DAILY 07/02/13 11/24/20 Naproxen [EC-Naproxen] 500 mg PO DAILY PRN #30 11/24/20 - Allergies Allergies/Adverse Reactions: Allergies Allergy/AdvReac Type Severity Reaction Status Date / Time doxycycline Allergy "boils" Verified 11/24/20 13:02 Penicillins Allergy Itching Verified 11/24/20 13:02 Sulfa (Sulfonamide Allergy Unknown Verified 11/24/20 13:02 Antibiotics) varenicline [From Chantix] Allergy suicidal Verified 11/24/20 13:02 - Social History Does the pt smoke?: Yes Smoking Status: Current every day smoker Does the pt drink ETOH?: No Does the pt have substance abuse?: No - Immunizations Immunizations are current?: No Immunizations: TDAP >10years/unknown - POLST Patient has POLST: No PD ED PE NORMAL - Vitals Vital signs reviewed: Yes - General General: Alert and oriented X 3, No acute distress - HEENT HEENT: Moist mucous membranes - Neck Neck: Supple, no meningeal sign - Cardiac Cardiac: RRR - Respiratory Respiratory: No respiratory distress, Clear bilaterally - Abdomen Abdomen: Normal bowel sounds, Soft, Non tender, Non distended - Derm Derm: Warm and dry - Extremities Extremities: Other (TTP over the R hip flexor area, pain external rotation. No pain with internal rotation. Better with flexion, worse with full extension.) - Neuro Neuro: Alert and oriented X 3 - Psych Psych: Normal mood, Normal affect Results - Vitals Vitals: Vital Signs - 24 hr 11/24/20 11/24/20 13:02 14:40 Temperature 36.9 C 36.9 C Heart Rate 96 89 Respiratory 19 16 Rate Blood Pressure 149/73 H 132/70 H O2 Saturation 95 97 Oxygen O2 Source Room air - Labs Labs: Laboratory Tests 11/24/20 13:10 Urine Color YELLOW Urine Clarity CLEAR Urine pH 5.5 Ur Specific [place] >=1.030 H Urine Protein NEGATIVE Urine Glucose (UA) NEGATIVE Urine Ketones NEGATIVE Urine Occult Blood TRACE-INTA Urine Nitrite NEGATIVE Urine Bilirubin NEGATIVE Urine Urobilinogen 0.2 (NORMAL) Ur Leukocyte Esterase NEGATIVE Ur Microscopic Review NOT INDICATED Urine Culture Comments NOT INDICATED - Rads (name of study) R hip xray Radiology: Prelim report reviewed, EMP read contemporaneously, See rad report (No acute abnormalities, mild degenerative changes) PD MEDICAL DECISION MAKING - ED course Complexity details: reviewed results, re-evaluated patient, considered differential, d/w patient ED course: Patient is a 60-year-old female with what appears to be a right hip flexor tendinitis/tendinopathy. We will trial on anti-inflammatories, stretching, rest and ice. Patient counseled regarding signs and symptoms for which I believe and urgent re-evaluation would be necessary. Patient with good understanding of and agreement to plan and is comfortable going home at this time This document was made in part using voice recognition software. While efforts are made to proofread this document, sound alike and grammatical errors may occur. Departure - Departure Disposition: 01 Home, Self Care Clinical Impression: Hip flexor tendinitis Qualifiers: Laterality: right Qualified Code(s): M76.891 - Other specified enthesopathies of right lower limb, excluding foot Condition: Good Instructions: Tendonitis and Tenosynovitis Follow-Up: Warren Hernandez MD [Primary Care Provider] - Within 1 week Prescriptions: Naproxen [EC-Naproxen] 500 mg PO DAILY PRN #30 PRN Reason: hip pain Comments: Your appear to have a hip flexor tendonitis/tendinopathy. You need to rest the area, ice 3-4 times a day and may benefit from a steroid injection with orthopedics.
--- NOTE | 2020-11-24 13:54 | XRAY Report ---
PROCEDURE: Hip w/Pelvis 2-3V RT INDICATIONS: RIGHT HIP PAIN X 2 MONTHS TECHNIQUE: AP pelvis with lateral view(s) of the right hip(s). COMPARISON: CT abdomen and pelvis 04/13/2019. FINDINGS: Bones: No fractures or dislocations. Pelvic ring appears intact. No suspicious bony lesions. No av ascular necrosis of the right femoral head. Minimal acetabular roof sclerosis. Soft tissues: The visualized bowel gas pattern is normal. No suspicious soft tissue calcifications. IMPRESSION: Minimal degenerative change appreciated. Reviewed by: Mitchell Meza MD on 11/24/2020 1:52 PM PDT Approved by: Mitchell Meza MD on 11/24/2020 1:52 PM PDT Station ID: [id number]
[2020-11-24] MEDS ORDERED: NAPROXEN 250 MG TABLET PO STA (14:35)
[2020-11-24 14:41] VITALS: BP 132/70
--- OUTSIDE RECORDS SUMMARY | 2020-11-29 02:00 | EXTERNAL MEDICAL SUMMARY RPT | Continuity of Care Document ---
:1960 Demographics Phone Unavailable Preferred Language Unknown Marital Status Unknown Jain Affiliation Unknown Race Unknown Ethnic Group Unknown Author Organization [facility] Address [address] [place] [address] Phone Social History date description facility [phone]
== END 2020-11-24 14:37 | disposition home or self-care (01) ==
LOC: ED 12:58
DX: M76.891 Other specified enthesopathies of right lower limb, excluding foot (principal); M25.551 Pain in right hip; F17.200 Nicotine dependence, unspecified, uncomplicated
CPT/HCPCS: 80053; 81001; 81003; 83690; 85025; 87086; 99284

== ENCOUNTER 2021-01-18 13:29 | Emergency (ER) | payer OTHER ==
--- OUTSIDE RECORDS SUMMARY | 2021-01-18 13:34 | EXTERNAL MEDICAL SUMMARY RPT | Continuity of Care Document ---
:1960 Demographics Phone Unavailable Preferred Language Unknown Marital Status Unknown Zoroastrianism Affiliation Unknown Race Unknown Ethnic Group Unknown Author Organization [facility] Address [address] [phone] Phone Allergies Encounters Medications Problems Results
--- OUTSIDE RECORDS SUMMARY | 2021-01-18 13:36 | EXTERNAL MEDICAL SUMMARY RPT | Continuity of Care Document ---
:1960 Demographics Phone Unavailable Preferred Language Unknown Marital Status Unknown Latter Day Affiliation Unknown Race Unknown Ethnic Group Unknown Author Organization [facility] Address [address] [phone] Phone Allergies Encounters Medications Problems Results
[2021-01-18 13:54] VITALS: BP 121/67
[2021-01-18 14:07] LABS: BASOPHILS # (AUTO) 0.1 10^3/uL (0.0-0.1); BASOPHILS % (AUTO) 0.8 %; EOSINOPHILS # (AUTO) 0.1 10^3/uL (0.0-0.7); EOSINOPHILS % (AUTO) 1.3 %; HCT - HEMATOCRIT 43.4 % (37.0-47.0); HGB - HEMOGLOBIN 14.1 g/dL (12.0-16.0); LYMPHOCYTES # (AUTO) 1.8 10^3/uL (1.5-3.5); LYMPHOCYTES % (AUTO) 28.8 %; MEAN CORPUSCULAR HEMOGLOBIN 29.7 pg (27.0-31.0); MEAN CORPUSCULAR HGB CONC 32.5 g/dL (32.0-36.0); MEAN CORPUSCULAR VOLUME 91.6 fL (81.0-99.0); MEAN PLATELET VOLUME 9.4 fL (7.9-10.8); MONOCYTES # (AUTO) 0.4 10^3/uL (0.0-1.0); MONOCYTES % (AUTO) 5.9 %; PLT - PLATELET COUNT 261 10^3/uL (130-450); RED BLOOD COUNT 4.74 10^6/uL (4.20-5.40); RED CELL DISTRIBUTION WIDTH 13.4 % (12.0-15.0); WHITE BLOOD COUNT 6.3 x10^3/uL (4.8-10.8)
[2021-01-18 14:21] LABS: ALBUMIN 4.5 g/dL (3.2-5.5); ALBUMIN/GLOBULIN RATIO 1.5 (1.0-2.2); BILIRUBIN,TOTAL 0.4 mg/dL (0.2-1.0); CALCIUM 9.1 mg/dL (8.5-10.3); CREATININE 0.6 mg/dL (0.4-1.0); POTASSIUM 3.7 mmol/L (3.5-5.0); TOTAL PROTEIN 7.5 g/dL (6.7-8.2)
--- NOTE | 2021-01-18 14:41 | ED Physician Documentation ---
PD HPI ABD PAIN - Stated complaint Stated Complaint: BLOATING AND DISCOMFORT - Chief complaint Chief Complaint: Abd Pain - History obtained from History obtained from: Patient - History of Present Illness Timing - onset: How many days ago (4) Timing - duration: Days (4) Timing - details: Gradual onset, Still present Quality: Sharp, Pain Location: LLQ Improved by: Laying still Worsened by: Moving, Position, Palpation Associated symptoms: No: Fever, Nausea, Vomiting, Hematemesis, Diarrhea, Constipation Similar symptoms before: Diagnosis (diverticulitis) Recently seen: Not recently seen - Additional information Additional information: 60-year-old female reports that she ate 2 4 bags of chocolate covered almonds 4 days ago and subsequent to that she developed some pain in the left lower quadrant and this is progressively worsened. She does not have a fever she is having some feeling of fullness and she is passing stool without difficulty. Review of Systems Constitutional: reports: Fatigue. denies: Fever Eyes: denies: Loss of vision, Decreased vision Ears: denies: Ear pain Nose: denies: Rhinorrhea / runny nose, Congestion Throat: denies: Sore throat Cardiac: denies: Chest pain / pressure, Palpitations Respiratory: denies: Dyspnea, Cough GI: reports: Abdominal Pain. 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 : Kidney stones HEENT: Chronic hearing loss Psych: Depression, Anxiety Musculoskeletal: Osteoarthritis Derm: None - Past Surgical History Past Surgical History: Yes General: Other /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: Dilation and currettage, Tubal ligation, Other - Present Medications Home Medications: Ambulatory Orders Medication Instructions Recorded Confirmed Sertraline [Zoloft] 100 mg PO DAILY 07/02/13 11/24/20 Naproxen [EC-Naproxen] 500 mg PO DAILY PRN #30 11/24/20 - Allergies Allergies/Adverse Reactions: Allergies Allergy/AdvReac Type Severity Reaction Status Date / Time doxycycline Allergy "boils" Verified 01/18/21 13:49 Penicillins Allergy Itching Verified 01/18/21 13:49 Sulfa (Sulfonamide Allergy Unknown Verified 01/18/21 13:49 Antibiotics) varenicline [From Chantix] Allergy suicidal Verified 01/18/21 13:49 - Social History Does the pt smoke?: Yes Smoking Status: Current every day smoker Does the pt drink ETOH?: No Does the pt have substance abuse?: No - Immunizations Immunizations are current?: No Immunizations: TDAP >10years/unknown - POLST Patient has POLST: No PD ED PE NORMAL - Vitals Vital signs reviewed: Yes (normal ) - General General: Alert and oriented X 3, No acute distress, Well developed/nourished - HEENT HEENT: Atraumatic, PERRL, EOMI - Neck Neck: Supple, no meningeal sign, No bony TTP - Cardiac Cardiac: RRR, No murmur - Respiratory Respiratory: No respiratory distress, Clear bilaterally - Abdomen Abdomen: Normal bowel sounds, Soft, Non distended, No organomegaly, Other (tenderness to the LLQ without garding or rebound tenderness. 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, No motor deficit, No sensory deficit, Normal speech Eye Opening: Spontaneous Motor: Obeys Commands Verbal: Oriented GCS Score: 15 - Psych Psych: Normal mood, Normal affect Results - Vitals Vitals: Vital Signs - 24 hr 01/18/21 13:49 Temperature 36.6 C Heart Rate 79 Respiratory 16 Rate Blood Pressure 121/67 O2 Saturation 97 Oxygen O2 Source Room air - Labs Labs: Laboratory Tests 01/18/21 01/18/21 01/18/21 14:02 14:02 16:44 WBC 6.3 RBC 4.74 Hgb 14.1 Hct 43.4 MCV 91.6 MCH 29.7 MCHC 32.5 RDW 13.4 Plt Count 261 MPV 9.4 Neut # (Auto) 4.0 Lymph # (Auto) 1.8 [place] # (Auto) 0.4 Eos # (Auto) 0.1 Baso # (Auto) 0.1 Absolute Nucleated RBC 0.00 Nucleated RBC % 0.0 Sodium 138 Potassium 3.7 Chloride 101 Carbon Dioxide 30 Anion Gap 7.0 BUN 14 Creatinine 0.6 Estimated GFR (MDRD) 103 Glucose 144 H Calcium 9.1 Total Bilirubin 0.4 AST 15 ALT 17 Alkaline Phosphatase 61 Total Protein 7.5 Albumin 4.5 Globulin 3.0 Albumin/Globulin Ratio 1.5 Lipase 25 Urine Color YELLOW Urine Clarity CLEAR Urine pH 7.0 Ur Specific [place] <=1.005 Urine Protein NEGATIVE Urine Glucose (UA) NEGATIVE Urine Ketones NEGATIVE Urine Occult Blood NEGATIVE Urine Nitrite NEGATIVE Urine Bilirubin NEGATIVE Urine Urobilinogen 0.2 (NORMAL) Ur Leukocyte Esterase NEGATIVE Ur Microscopic Review NOT INDICATED Urine Culture Comments NOT INDICATED PD MEDICAL DECISION MAKING - ED course Complexity details: reviewed results, re-evaluated patient, considered differe ntial, d/w patient ED course: CT abdomen pelvis with: Impression: 1. No acute inflammatory processes seen in the abdomen or pelvis. No bowel obstruction. No free fluid or free air. 2. Descending and sigmoid colon diverticulosis without CT evidence of acute diverticulitis. Normal appendix. No abscess collection. 3. Stable 3 mm right basal solid nodule likely represents benign process. 4. Diffuse left adrenal gland thickening with suggestion of 1.5 x 1 cm left adrenal nodule which may represent adrenal adenoma not significantly changed from 2019 study. 5. 4 mm t iny hypodense involving the left hepatic lobe not definitely seen on previous study and may represent hepatic cyst. 6. Stable upper pole left renal cyst no hydronephrosis The patient has some left lower quadrant abdominal pain she does not have evidence of diverticulitis on CT scanning. Her exam is remarkable only for some mild left lower quadrant tenderness and I have asked the patient to return to the emergency department should she have progression of her symptoms including fever vomiting and worsening pain. Departure - Departure Disposition: 01 Home, Self Care Clinical Impression: Abdominal pain Qualifiers: Abdominal location: left lower quadrant Qualified Code(s): R10.32 - Left lower quadrant pain Condition: Stable Instructions: ED Abdominal Pain Unkn Cause Follow-Up: Warren Hernandez MD [Primary Care Provider] - Discharge Date/Time: 01/18/21 17:45
[2021-01-18] MEDS ORDERED: IOVERSOL 320 100 ML VIAL IVP ONE ×2 (14:45→23:33)
--- NOTE | 2021-01-18 15:29 | CT Report ---
PROCEDURE: Abdomen/Pelvis W INDICATIONS: LLQ pain CONTRAST: IV CONTRAST: Optiray 320 ml: 100 PO CONTRAST: *NO PO CONTRAST TECHNIQUE: After the administration of IV contrast, 5 mm thick sections acquired from the diaphragms to the symp hysis. 5 mm thick coronal and sagittal reformats were acquired. For radiation dose reduction, the f ollowing was used: automated exposure control, adjustment of mA and/or kV according to patient size. COMPARISON: 04/21/2019. FINDINGS: Image quality: Excellent. ABDOMEN: Lung bases: 3 mm right basilar pulmonary nodule is unchanged from prior studies. Heart size is normal . Solid organs: Liver and spleen are normal in size and enhancement. 4 mm tiny hypodensity involving a nterior periphery of left hepatic lobe is seen and is too small to adequately characterize. Gallbladd er is within normal limits Biliary system is non dilated. Pancreas enhances normally. Diffusely th ickened left adrenal gland is seen, with suggestion of left adrenal nodule measures 1.5 x 1 cm in siz e series 3 image 22 not significantly changed from previous study. No adrenal nodules. Kidneys demon strate normal size and enhancement, without hydronephrosis. Upper pole left renal cyst is seen, unch anged from prior studies. Peritoneum and bowel: Bowel loops demonstrate normal wall thickness and caliber. No free fluid or a ir. Appendix is visualized and is within normal limits. Mild to moderate colonic diverticulosis is s een particularly involving descending colon and sigmoid colon. No CT evidence of acute diverticulitis . No abscess collection. Nodes and vessels: No retroperitoneal or mesenteric adenopathy by size criteria. Aorta and inferior vena cava are normal in size. Miscellaneous: No ventral hernias. PELVIS: Genitourinary: Bladder wall thickness is normal. Uterus and bilateral adnexa show no gross abnormal ity. Miscellaneous: No inguinal hernias or adenopathy. Bones: No suspicious bony lesions. No vertebral body compression fractures. IMPRESSION: 1. No acute inflammatory process is seen in abdomen or pelvis. No bowel obstruction. No free fluid of free air. 2. Descending and sigmoid colon diverticulosis without CT evidence of acute diverticulitis. Normal ap pendix. No abscess collection. 3. Stable 3 mm right basilar solid nodule likely represent benign process. 4. Diffuse left adrenal gland thickening with suggestion of 1.5 x 1 cm left adrenal nodule which may represent adrenal adenoma not significantly changed from 2019 study. 5. 4 mm tiny hypodensity involving left hepatic lobe not definitely seen on previous study and may re present hepatic cyst. 6. Stable upper pole left renal cyst. No hydronephrosis. Reviewed by: Sam Ac MD on 01/18/2021 3:28 PM PDT Approved by: Sam Ac MD on 01/18/2021 3:28 PM PDT Station ID: [id number]
[2021-01-18 16:50] LABS: BILIRUBIN,URINE NEGATIVE (NEGATIVE); CLARITY,URINE CLEAR (CLEAR); GLUCOSE, URINE (UA) NEGATIVE (NEGATIVE); KETONES,URINE (UA) NEGATIVE (NEGATIVE); LEUKOCYTE ESTERASE, URINE NEGATIVE (NEGATIVE); NITRITE,URINE NEGATIVE (NEGATIVE); OCCULT BLOOD,URINE NEGATIVE (NEGATIVE); PROTEIN,URINE NEGATIVE (NEGATIVE); UROBILINOGEN,URINE 0.2 (NORMAL) E.U./dL (NORMAL)
== END 2021-01-18 17:45 | disposition home or self-care (01) ==
LOC: ED 13:29
DX: R10.32 Left lower quadrant pain (principal); K57.30 Diverticulosis of large intestine without perforation or abscess without bleeding; Z87.19 Personal history of other diseases of the digestive system; F17.200 Nicotine dependence, unspecified, uncomplicated
CPT/HCPCS: 36415; 74177; 80053; 81003; 83690; 85025; 99283; 99284; Q9967; 81001; 87086

== ENCOUNTER 2021-02-16 07:38 | Outpatient (CLI) | payer OTHER ==
[2021-02-16 12:23] LABS: BUN - BLOOD UREA NITROGEN 13 mg/dL (6-20); CALCIUM 9.5 mg/dL (8.5-10.3); CARBON DIOXIDE - CO2 28 mmol/L (21-32); CHLORIDE 101 mmol/L (101-111); CHOL/HDL RATIO 4.7 (<4.4); CHOLESTEROL 207 mg/dL; CREATININE 0.6 mg/dL (0.4-1.0); GFR - MDRD 103 (>89); GLUCOSE 100 mg/dL (70-100); HDL CHOLESTEROL 44 mg/dL; LDL CHOLESTEROL,CALCULATED 147 mg/dL; LDL/HDL RATIO 3.3 (<4.4); POTASSIUM 4.4 mmol/L (3.5-5.0); SODIUM 137 mmol/L (135-145); TRIGLYCERIDES 79 mg/dL; VLDL CHOLESTEROL 16 mg/dL
[2021-02-16 12:29] LABS: THYROID STIMULATING HORMONE 0.85 uIU/mL (0.34-5.60)
[2021-02-16 12:31] LABS: FREE T4 (FREE THYROXINE) 0.89 ng/dL (0.58-1.64)
== END 2021-02-16 07:39 | disposition home or self-care (01) ==
LOC: LAB.N 07:38
PROVIDERS: ATTEND Internal Medicine
DX: F31.9 Bipolar disorder, unspecified (principal); F41.9 Anxiety disorder, unspecified; Z13.220 Encounter for screening for lipoid disorders
CPT/HCPCS: 36415; 80048; 80061; 83721; 84439; 84443

== ENCOUNTER 2021-03-14 07:36 | Outpatient (CLI) | payer OTHER ==
[2021-03-14 08:38] VITALS: BP 117/73
--- NOTE | 2021-03-14 08:38 | SLEEP CARE CONSULTATION ---
Information from patient questionnaire entered by Goldie Coy. I have reviewed and concur with the information entered by Goldie Coy. This document represents the service I personally performed and the decisions made by me, Shana Tidwell ARNP. History of Present Illness Service Date and Time: 03/14/2021 0736 Reason for Visit: New patient Chief Complaint: reports: Unrefreshed sleep, Snoring, Fatigue Date of Onset: 2 years Usual bedtime: 9:30 PM Time it takes to fall asleep: 30-45 mins Snores at night: Yes Observed to quit breathing while asleep: No Sleeps alone due to snoring: No Number of times waking at night: 0 or 1 Reasons for waking at night: reports: Bathroom. denies: Choking, Snoring, Gasping for air Toss, Turn, or Twitch while sleeping: Yes Recalls having dreams: No Usually gets out of bed at: 6:00 - 6:30 Feels refreshed in the morning: No Morning headache: No Sleepy or fatigued during the day: No Ever fallen asleep while driving: Yes (when young had drowsy driving but not as an adult) Takes day naps: Yes (4 days of week for about 2-3 hours) Prior sleep studies: No Additional HPI information: I had the pleasure of seeing BENJAMÍN OLMOS today regarding the possibility of her having a sleep disorder. Her current complaints are fatigue, snoring and unrefreshed sleep. She states some days she wakes up and doesn't feel rested. She states she falls asleep soon after eating. In the last few years, she has been told that she snores loudly and talks in her sleep. She was also told that they heard choking sounds from her while she was sleeping. She is very active in her sleep. She only remembers her dreams if they are bad dreams. 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 Patient is single and lives in [place]. Have you smoked in the past 12 months: Yes Cigarettes per day (20/pack): 20 Years of smokin Smoking Pack Years: 45.0 Alcohol use: Yes Alcohol amount and frequency: 2 monthly Caffeine use: Yes Caffeine amount and frequency: 4 cups daily Family History Family history of sleep disordered breathing: Yes Family Hx Sleep Apnea: Mother: Snoring, Father: Snoring, Sibling: Snoring Allergies and Home Medications Drug allergies reviewed: Yes (as listed in chart) Home medication list reviewed: Yes Allergy and home medication list: Naproxen, prn Zoloft 100 mg nightly Review of Systems Cardiovascular: denies: high blood pressure Respiratory: reports: chronic cough Gastrointestinal: denies: heartburn Urinary: reports: incontinence Neurological: denies: headaches Psychiatric: reports: anxiety, depression, other (DID). denies: mood disorder Ear/Nose/Throat: reports: wisdom teeth removed. denies: injury to nose, tonsillectomy Endocrine: reports: thyroid disease (has 1/2 thyroid) Musculoskeletal: reports: joint pain (stiffness), muscle pain or cramping Immunologic: reports: allergies to food or environment (seasonal) Physical Exam Blood Pressure: 117/73 Cuff size: wrist Heart Rate: 72 O2 Saturation: 98 Height: 5 ft 2 in Weight: 148 lb Body Mass Index: 27.1 BMI Classification: Overweight Neck circumference: 14.2 (inches) Mouth and throat: narrow oropharynx Soft palate: long Hard palate: normal Uvula visualization: 100% Mallampati Class I Tongue: enlarged in size with teeth [place] on lateral edges Tonsils: small Neck: normal w/o lymphadenopathy or thyromegaly Heart: regular rate and rhythm Lungs: clear bilaterally Impression and Plan 1. Suspected Obstructive Sleep Apnea-Hypopnea Syndrome, as suggested by a history of loud and irregular snoring, unrefreshed sleep, and cognitive impairment. Narrow oropharynx and obesity are common predisposing factors for obstructive sleep apnea-hypopnea syndrome. I recommend proceeding to polysomnography to confirm the diagnosis and to assess severity. If the patient has significant sleep disordered breathing, a manual CPAP titration study will also be performed to find the optimal treatment pressure. I informed the patient of what the sleep studies involve and after some discussion, obtained agreement to proceed. The pathophysiology of obstructive sleep apnea-hypopnea syndrome was discussed with the patient and health risks of cardiovascular and cerebrovascular disease if not treated. AASM brochure for obstructive sleep apnea-hypopnea syndrome given and reviewed. Risks of drowsy driving discussed in detail and patient advised to avoid long distance driving and to supervisor [employer] at the first sign of drowsiness. Patient agreed to plan. * Schedule polysomnography +- manual CPAP titration study and return in 1-2 weeks after the study to discuss result and initiate therapy. * Avoid long distance driving or driving when feeling sleepy. * Avoid alcohol, sedative and muscle relaxant around bedtime. * Attempt to lose weight. * Review instructions provided by trained office staff on how to prepare for the sleep study. * Return for follow-up after sleep study completed. Counseling Topics: Weight loss health impact Visit Type: In Office Time Spent with Patient (minutes): 32 Provider Statement: I spent 100% of the Face to Face Visit with the patient with greater than 50% spent counseling the patient and coordination of care.
== END 2021-03-14 07:37 | disposition home or self-care (01) ==
LOC: SC 07:36
PROVIDERS: ATTEND Nurse Practitioner Family
DX: R06.83 Snoring (principal); F17.210 Nicotine dependence, cigarettes, uncomplicated; G47.8 Other sleep disorders; R41.89 Other symptoms and signs involving cognitive functions and awareness
CPT/HCPCS: 99203; 99212

== ENCOUNTER 2021-09-26 08:00 | Outpatient (CLI) | payer SELFPAY | END 2021-09-26 23:59 | LOC: LAB.N 08:00 | PROVIDERS: ATTEND Physician Assistant Medical | DX: R30.0 Dysuria (principal); R05.9 Cough, unspecified; Z20.822 Contact with and (suspected) exposure to COVID-19 | CPT/HCPCS: 87086; 87181 ==

== ENCOUNTER 2021-11-02 08:00 | Outpatient (CLI) | payer SELFPAY ==
[2021-11-02 17:51] LABS: BASOPHILS % (AUTO) 0.5 %; EOSINOPHILS % (AUTO) 0.6 %; HCT - HEMATOCRIT 42.1 % (37.0-47.0); HGB - HEMOGLOBIN 13.5 g/dL (12.0-16.0); LYMPHOCYTES # (AUTO) 1.8 10^3/uL (1.5-3.5); LYMPHOCYTES % (AUTO) 26.6 %; MEAN CORPUSCULAR HEMOGLOBIN 28.6 pg (27.0-31.0); MEAN CORPUSCULAR HGB CONC 32.1 g/dL (32.0-36.0); MEAN CORPUSCULAR VOLUME 89.2 fL (81.0-99.0); MEAN PLATELET VOLUME 10.4 fL (7.9-10.8); MONOCYTES # (AUTO) 0.5 10^3/uL (0.0-1.0); MONOCYTES % (AUTO) 7.5 %; NEUTROPHILS # (AUTO) 4.3 10^3/uL (1.5-6.6); NEUTROPHILS % (AUTO) 64.6 %; PLT - PLATELET COUNT 261 10^3/uL (130-450); RED BLOOD COUNT 4.72 10^6/uL (4.20-5.40); RED CELL DISTRIBUTION WIDTH 13.3 % (12.0-15.0); WHITE BLOOD COUNT 6.6 x10^3/uL (4.8-10.8)
[2021-11-02 18:17] LABS: ALBUMIN/GLOBULIN RATIO 1.3 (1.0-2.2); BILIRUBIN,TOTAL 0.3 mg/dL (0.2-1.0); CALCIUM 9.1 mg/dL (8.5-10.3); CREATININE 0.7 mg/dL (0.4-1.0); TOTAL PROTEIN 7.2 g/dL (6.7-8.2)
== END 2021-11-02 23:59 | disposition home or self-care (01) ==
LOC: LAB.N 08:00
PROVIDERS: ATTEND Physician Assistant
DX: R31.9 Hematuria, unspecified (principal)
CPT/HCPCS: 36415; 80053; 85025

== ENCOUNTER 2021-11-02 15:05 | Outpatient (CLI) | payer SELFPAY ==
--- NOTE | 2021-11-02 16:02 | CT Report ---
PROCEDURE: Abdomen/Pelvis WO INDICATIONS: Hematuria. Right abdominal/flank pain. TECHNIQUE: Noncontrast 5 mm thick sections acquired from the diaphragms to the symphysis. 5 mm coronal and sagi ttal reformats were then performed. For radiation dose reduction, the following was used: automated exposure control, adjustment of mA and/or kV according to patient size. COMPARISON: CT abdomen pelvis 01/18/2021, 04/13/2019. FINDINGS: Image quality: Excellent. ABDOMEN: Lung bases: There is mild scarring redemonstrated in the lung bases. A calcified nodule is also again noted in the right lower lobe consistent with sequelae of old granulomatous disease. Heart size is n ormal. There is a small hiatal hernia. Solid organs: Noncontrast evaluation of the liver demonstrates no discrete mass. Gallbladder appears within normal limits without calcified gallstones. Pancreas is normal in contours without peripancre atic fat stranding. No adrenal nodules. There is mild thickening of the left adrenal gland redemonst rated. Spleen is normal in size. Kidneys demonstrate no renal stones or hydronephrosis. There is a cyst redemonstrated in the superior pole of the left kidney. The ureters are nondistended without ureteral stones. Peritoneum and bowel: Small and large bowel loops demonstrate normal wall thickness and caliber. The appendix is normal in appearance. There is colonic diverticulosis without acute diverticulitis. No fr ee fluid or air. Nodes and vessels: No retroperitoneal or mesenteric adenopathy by size criteria. Aorta and inferior vena cava are normal in caliber. Miscellaneous: No ventral hernias. PELVIS: Genitourinary: Bladder wall thickness is normal. No calcified bladder stones. Miscellaneous: No inguinal hernias or adenopathy. Bones: No suspicious bony lesions. No vertebral body compression fractures. There is moderate to se andressa degenerative disc disease at L5-S1. IMPRESSION: 1. No evidence of nephrolithiasis or obstructive uropathy. 2. No evidence of appendicitis. 3. Colonic diverticulosis without acute diverticulitis. Findings discussed with Jake Davison on 11/02/2021 at 4:00 PM. Reviewed by: Brian Manning MD on 11/02/2021 4:00 PM PST Approved by: Brian Manning MD on 11/02/2021 4:00 PM PST Station ID: [id number]
== END 2021-11-02 15:06 | disposition home or self-care (01) ==
LOC: DI 15:05
PROVIDERS: ATTEND Physician Assistant
DX: R31.9 Hematuria, unspecified (principal); K57.30 Diverticulosis of large intestine without perforation or abscess without bleeding

== ENCOUNTER 2021-12-31 08:00 | Outpatient (CLI) | payer BC, OTHER | END 2022-01-01 12:23 | disposition home or self-care (01) | LOC: LAB.N 08:00 | PROVIDERS: ATTEND Physician Assistant Medical | DX: N30.00 Acute cystitis without hematuria (principal) | CPT/HCPCS: 87086 ==

== ENCOUNTER 2022-01-14 16:21 | Outpatient (CLI) | payer BC ==
[2022-01-14 21:09] LABS: BILIRUBIN,URINE NEGATIVE (NEGATIVE); GLUCOSE, URINE (UA) NEGATIVE (NEGATIVE); KETONES,URINE (UA) NEGATIVE (NEGATIVE); LEUKOCYTE ESTERASE, URINE NEGATIVE (NEGATIVE); NITRITE,URINE NEGATIVE (NEGATIVE); OCCULT BLOOD,URINE NEGATIVE (NEGATIVE); PROTEIN,URINE NEGATIVE (NEGATIVE); UROBILINOGEN,URINE 0.2 (NORMAL) E.U./dL (NORMAL)
[2022-01-14 21:10] LABS: CLARITY,URINE CLEAR (CLEAR)
[2022-01-14 21:22] LABS: RBC,URINE 0-5 /HPF (0-5); SQUAMOUS EPITHELIAL CELL,UR NONE SEEN (<= Few); WBC,URINE 0-3 /HPF (0-5)
[2022-01-14 21:23] LABS: BACTERIA,URINE None Seen /HPF (None Seen)
== END 2022-01-14 16:22 | disposition home or self-care (01) ==
LOC: LAB.N 16:21
PROVIDERS: ATTEND Nurse Practitioner
DX: R31.9 Hematuria, unspecified (principal)
CPT/HCPCS: 81001; 87086

== ENCOUNTER 2022-04-27 08:00 | Outpatient (CLI) | payer BC, MEDICARE | END 2022-04-27 23:59 | disposition home or self-care (01) | LOC: LAB.N 08:00 | PROVIDERS: ATTEND Nurse Practitioner | DX: N39.0 Urinary tract infection, site not specified (principal) | CPT/HCPCS: 87086; 87181 ==

== ENCOUNTER 2022-06-10 11:23 | Outpatient (CLI) | payer MEDICARE ==
--- NOTE | 2022-06-10 16:17 | XRAY Report ---
PROCEDURE: Shoulder 3 View RT INDICATIONS: R SHOULDER PX TECHNIQUE: 3 views of the shoulder were acquired. COMPARISON: X-ray right shoulder, 04/13/2013. FINDINGS: Bones: No fractures or dislocations. No suspicious bony lesions. Mild acromioclavicular and glenohu meral joint degeneration. Visualized ribs appear intact. Soft tissues: No suspicious soft tissue calcifications. IMPRESSION: Mild degenerative joint disease. Reviewed by: Ghanshyam Lopez MD on 06/10/2022 4:15 PM PDT Approved by: Ghanshyam Lopez MD on 06/10/2022 4:15 PM PDT Station ID: [id number]
== END 2022-06-10 11:24 | disposition home or self-care (01) ==
LOC: DI.N 11:23
PROVIDERS: ATTEND Nurse Practitioner
DX: M19.011 Primary osteoarthritis, right shoulder (principal)

== ENCOUNTER 2022-07-22 10:16 | Outpatient (CLI) | payer MEDICARE ==
--- NOTE | 2022-07-23 11:54 | Mammography Report ---
BILATERAL DIGITAL DIAGNOSTIC MAMMOGRAM 3D/2D: 07/22/2022 CLINICAL: Itchiness in left breast. Personal history of left breast cancer. Due for bilateral. Comparison is made to exams dated: 01/05/2021 mammogram - [facility], 05/19/2020 mammogram , 08/21/2017 mammogram, 09/21/2015 mammogram, 04/13/2014 mammogram, and 02/12/2012 mammogram - [facility]. Both breasts are heterogeneously dense, which may obscure small masses (category c / 51-75% glandular tissue). There are stable benign calcifications in both breasts. There also are benign post operative finding s in the left breast. No significant masses, calcifications, or other findings are seen in either breast. IMPRESSION: INCOMPLETE: NEEDS ADDITIONAL IMAGING EVALUATION There is no mammographic abnormality seen in the left breast to correspond with the area of clinical concern, however, targeted ultrasound of the left breast is recommended and will be performed immedi ately following this exam. This exam was interpreted at Station ID: [id number]. NOTE: For mammograms, a report in lay terms will be sent to the patient. Approximately 15% of breast malignancies will not be visualized mammographically. In the management of a palpable breast mass, a negative mammogram must not discourage biopsy of a clinically suspicious lesion. Electronically Signed By: Rosario Abdalla M.D. lk/:07/22/2022 10:47:59 copy to: [facility]UR[facility], ph: [phone], fax: [phone] ACR BI-RADS Category 0: Incomplete 3340F PARENCHYMAL PATTERN: (D) - The breast(s) demonstrate(s) heterogeneously dense fibroglandular parenchy ma. BI-RADS CATEGORY: (0) - 0 Ultrasound [id number] Immediate follow-up LATERALITY: (B)
--- NOTE | 2022-07-23 11:54 | Ultrasound Report ---
LIMITED ULTRASOUND OF LEFT BREAST: 07/22/2022 CLINICAL: Post left lumpectomy. Left Breast itching. Comparison is made to exams dated: 07/22/2022 mammogram - [facility], 01/05/2021 ma mmogram - [facility], 05/19/2020 mammogram, 08/21/2017 mammogram, 09/21/2015 mammogram, and 04/13/2014 mammogram - [facility]. Color flow ultrasound of the left breast upper outer quadrant and retroareolar regions was performed on the areas of interest. Pham scale images of the real-time examination were reviewed. There is a post-surgical scar in the left breast at 1 o'clock posterior depth. This post-surgical sc ar displays posterior accoustic shadowing. IMPRESSION: BENIGN There is no sonographic evidence of malignancy. The post-surgical scar in the left breast is benign. There is no abnormality seen in the left breast to correspond with the pruritis in the region of the scar, or in the sub-areolar region, however, clinical followup is recommended. Please note, Padgets disease of the breast cannot be excluded by imaging. If there is concern for Padgets disease, surgic al consultation is recommended. Return to annual mammogram screening schedule is recommended. This exam was interpreted at Station ID: [id number]. Electronically Signed By: Rosario Abdalla M.D. lk/:07/22/2022 11:20:05 copy to: [facility]UR[facility], ph: [phone], fax: [phone] Ultrasound BI-RADS: 2 Benign BI-RADS CATEGORY: (2) - 2 Mammogram [id number] return to screening LATERALITY: (B)
== END 2022-07-22 10:17 | disposition home or self-care (01) ==
LOC: DI 10:16
PROVIDERS: ATTEND Internal Medicine
DX: L29.8 Other pruritus (principal); Z85.3 Personal history of malignant neoplasm of breast; L90.5 Scar conditions and fibrosis of skin; N64.89 Other specified disorders of breast

== ENCOUNTER 2022-09-25 09:15 | Outpatient (CLI) | payer MEDICARE ==
--- NOTE | 2022-09-25 19:31 | MRI Report ---
PROCEDURE: SHOULDER WO - RT INDICATIONS: RIGHT SHOULDER PAIN TECHNIQUE: Noncontrast oblique coronal T2 fast spin echo with fat saturation, oblique sagittal T1 spin echo and T2 fast spin echo with fat saturation, axial T1 spin echo and T2 fast spin echo with fat saturation t hrough the shoulder. COMPARISON: Shoulder radiograph dated 06/10/2022. FINDINGS: Image quality: Excellent. Rotator cuff: Mild T2 signal elevation diffusely throughout the supraspinatus and infraspinatus tend ons at the humeral insertion sites extending the muscular tendinous junctions, indicating tendinopath y. Superimposed low-grade partial-thickness intrasubstance tearing of the mid and posterior supraspin atus as well as the mid and anterior per spinatus tendons at the humeral insertion sites extending th e muscular tendinous junctions. Low-grade partial-thickness articular surface tearing of the upper ortega bscapularis tendon at the humeral insertion site extending to the muscular tendinous junction. Teres minor tendon is intact. No rotator cuff atrophy. Bones and bursae: No bone marrow contusions or fractures. Moderate acromioclavicular joint degenerat ion. The acromion demonstrates conventional anatomy, without an os acromiale. No pathologic subacro mial/subdeltoid bursal fluid is present. Capsule and soft tissues: The is signal abnormality and contour irregularity involving superior anter ior labrum at 12 to 1:00 position suggestive of subtle superior anterior labral tear. The long head o f the biceps tendon is thickened intra-articularly. The rotator interval appears normal, without fibr osis. The coracohumeral ligament is normal in thickness. IMPRESSION: 1. Supraspinatus and infraspinatus tendinopathy. 2. Low-grade partial-thickness tears of the supraspinatus, infraspinatus, and subscapularis tendons. No full-thickness rotator cuff tear. 3. Acromioclavicular joint osteoarthritis. 4. Subtle superior anterior labral tear at 12 to 1:00 position. 5. Proximal intra-articular portion of long head of biceps tendinosis. Reviewed by: Sam Ac MD on 09/25/2022 7:29 PM PST Approved by: Sam Ac MD on 09/25/2022 7:29 PM PST Station ID: [id number]
== END 2022-09-25 09:16 | disposition home or self-care (01) ==
LOC: DI 09:15
PROVIDERS: ATTEND Internal Medicine
DX: M19.011 Primary osteoarthritis, right shoulder (principal); S46.911A Strain of unspecified muscle, fascia and tendon at shoulder and upper arm level, right arm, initial encounter; M75.91 Shoulder lesion, unspecified, right shoulder; M75.111 Incomplete rotator cuff tear or rupture of right shoulder, not specified as traumatic; S43.401A Unspecified sprain of right shoulder joint, initial encounter

== ENCOUNTER 2022-11-27 07:25 | Outpatient (CLI) | payer MEDICARE ==
[2022-11-27 11:40] LABS: BASOPHILS # (AUTO) 0.1 10^3/uL (0.0-0.1); BASOPHILS % (AUTO) 0.9 %; EOSINOPHILS # (AUTO) 0.1 10^3/uL (0.0-0.7); EOSINOPHILS % (AUTO) 1.2 %; HCT - HEMATOCRIT 45.8 % (37.0-47.0); HGB - HEMOGLOBIN 14.4 g/dL (12.0-16.0); LYMPHOCYTES # (AUTO) 1.8 10^3/uL (1.5-3.5); LYMPHOCYTES % (AUTO) 31.5 %; MEAN CORPUSCULAR HGB CONC 31.4 g/dL (32.0-36.0); MEAN CORPUSCULAR VOLUME 92.3 fL (81.0-99.0); MEAN PLATELET VOLUME 10.8 fL (7.9-10.8); MONOCYTES # (AUTO) 0.4 10^3/uL (0.0-1.0); MONOCYTES % (AUTO) 7.1 %; NEUTROPHILS # (AUTO) 3.4 10^3/uL (1.5-6.6); PLT - PLATELET COUNT 276 10^3/uL (130-450); RED BLOOD COUNT 4.96 10^6/uL (4.20-5.40); RED CELL DISTRIBUTION WIDTH 13.9 % (12.0-15.0); WHITE BLOOD COUNT 5.8 x10^3/uL (4.8-10.8)
[2022-11-27 12:19] LABS: THYROID STIMULATING HORMONE 2.23 uIU/mL (0.34-5.60)
[2022-11-27 14:00] LABS: ALBUMIN/GLOBULIN RATIO 1.2 (1.0-2.2); ALKALINE PHOSPHATASE 55 IU/L (42-121); ALT ALANINE AMINOTRANSFERASE 20 IU/L (10-60); AST ASPARTATE AMINOTRANSFERASE 14 IU/L (10-42); BILIRUBIN,TOTAL 0.3 mg/dL (0.2-1.0); BUN - BLOOD UREA NITROGEN 13 mg/dL (6-20); CARBON DIOXIDE - CO2 29 mmol/L (21-32); CHLORIDE 106 mmol/L (101-111); CHOL/HDL RATIO 4.2 (<4.4); CHOLESTEROL 225 mg/dL; CREATININE 0.6 mg/dL (0.4-1.0); GFR - MDRD 102 (>89); GLUCOSE 97 mg/dL (70-100); HDL CHOLESTEROL 53 mg/dL; LDL CHOLESTEROL,CALCULATED 154 mg/dL; LDL/HDL RATIO 2.9 (<4.4); POTASSIUM 4.2 mmol/L (3.5-5.0); SODIUM 138 mmol/L (135-145); TOTAL PROTEIN 7.4 g/dL (6.7-8.2); TRIGLYCERIDES 92 mg/dL; VLDL CHOLESTEROL 18 mg/dL
== END 2022-11-27 07:26 | disposition home or self-care (01) ==
LOC: LAB.N 07:25
PROVIDERS: ATTEND Internal Medicine
DX: F41.9 Anxiety disorder, unspecified (principal); F32.A Depression, unspecified; Z85.3 Personal history of malignant neoplasm of breast; Z13.220 Encounter for screening for lipoid disorders
CPT/HCPCS: 36415; 80053; 80061; 83721; 84443; 85025

== ENCOUNTER 2022-12-25 11:40 | Outpatient (CLI) | payer MEDICARE ==
--- NOTE | 2022-12-25 14:17 | Ultrasound Report ---
PROCEDURE: Head or Neck Soft Tissue INDICATIONS: LEFT NECK PAIN, SMOKER TECHNIQUE: Real-time scanning was performed of the thyroid gland, with image documentation. COMPARISON: None FINDINGS: Right: Surgically removed. Left: Thyroid lobe measures 4.2 x 2.2 x 2.6 cm, and is homogenous in echotexture. No nodules. Isthmus: 4 mm thick. Subcentimeter cervical lymph nodes are noted bilaterally. IMPRESSION: 1. Right thyroidectomy. 2. Normal left thyroid lobe and isthmus. 3. Subcentimeter cervical lymph nodes are present bilaterally, which is a nonspecific finding. Recomm end clinical follow-up. If clinically indicated, neck CT with contrast can be obtained. ACR TI-RADS definitions and recommendations: TI-RADS 1 (benign): 0 points. FNA not needed. TI-RADS 2 (not suspicious): 2 points. FNA not needed. TI-RADS 3 (mildly suspicious): 3 points. "FNA if 2.5 cm or larger, follow up if 1.5 cm or larger (at 1, 3, and 5 years). TI-RADS 4 (moderately suspicious): 4-6 points. "FNA if 1.5 cm or larger, follow up if 1 cm or larger (at 1, 2, 3, and 5 years). TI-RADS 5 (highly suspicious): 7 points or more. "FNA if 1 cm or larger, follow up if 0.5 cm or larger (every year for 5 years). Reviewed by: Ghanshyam Lopez MD on 12/25/2022 2:15 PM PDT Approved by: Ghanshyam Lopez MD on 12/25/2022 2:15 PM PDT Station ID: [id number]
--- NOTE | 2022-12-25 18:01 | CT Report ---
PROCEDURE: Low Dose Lung Cancer Screen INDICATIONS: LEFT NECK PAIN, SMOKER TECHNIQUE: Noncontrast low-dose axial images were acquired from the pulmonary apices to the posterior costophren ic angles. Multiplanar MIP reformats were then reconstructed. For radiation dose reduction, the follo wing was used: automated exposure control, adjustment of mA and/or kV according to patient size. COMPARISON: Chest radiographs 04/12/2019 FINDINGS: Prior cancer history: Unsure. Lungs and pleura: Mild emphysema. Calcified granuloma right lower lobe. No large or highly suspicious pulmonary nodule identified. No pleural effusion. Mediastinum: No pericardial effusions. Chest wall and lower neck: No axillary or supraclavicular adenopathy by size. Postsurgical changes o f the left breast. The breasts are not well evaluated by CT. Bones: No aggressive osseous abnormality. Upper Abdomen: Unremarkable. IMPRESSION: Lung RAD: 1 - Negative. Recommendation: Continue annual screening in 12 Months with LDCT Non-Lung Significant Findings: None Reviewed by: Braden Campoverde MD on 12/25/2022 6:00 PM PDT Approved by: Braden Campoverde MD on 12/25/2022 6:00 PM PDT Station ID: [id number]
== END 2022-12-25 11:41 | disposition home or self-care (01) ==
LOC: DI 11:40
PROVIDERS: ATTEND Internal Medicine
DX: Z12.2 Encounter for screening for malignant neoplasm of respiratory organs (principal); M54.2 Cervicalgia; F17.210 Nicotine dependence, cigarettes, uncomplicated; E89.0 Postprocedural hypothyroidism

== ENCOUNTER 2023-01-01 08:00 | Outpatient (CLI) | payer MEDICARE | END 2023-01-01 23:59 | disposition home or self-care (01) | LOC: LAB.N 08:00 | PROVIDERS: ATTEND Physician Assistant | DX: Z53.9 Procedure and treatment not carried out, unspecified reason (principal) ==

== ENCOUNTER 2023-12-06 08:00 | Outpatient (CLI) | payer MEDICARE | END 2023-12-06 08:01 | disposition home or self-care (01) | LOC: LAB.N 08:00 | PROVIDERS: ATTEND Physician Assistant Medical | DX: J01.90 Acute sinusitis, unspecified (principal) ==

== ENCOUNTER 2023-12-17 08:46 | Outpatient (CLI) | payer MEDICARE ==
[2023-12-17 11:44] LABS: BASOPHILS # (AUTO) 0.1 10^3/uL (0.0-0.1); BASOPHILS % (AUTO) 1.2 %; EOSINOPHILS % (AUTO) 0.7 %; HCT - HEMATOCRIT 43.8 % (37.0-47.0); HGB - HEMOGLOBIN 14.1 g/dL (12.0-16.0); LYMPHOCYTES # (AUTO) 1.9 10^3/uL (1.5-3.5); LYMPHOCYTES % (AUTO) 32.5 %; MEAN CORPUSCULAR HEMOGLOBIN 29.2 pg (27.0-31.0); MEAN CORPUSCULAR HGB CONC 32.2 g/dL (32.0-36.0); MEAN CORPUSCULAR VOLUME 90.7 fL (81.0-99.0); MEAN PLATELET VOLUME 9.7 fL (7.9-10.8); MONOCYTES # (AUTO) 0.4 10^3/uL (0.0-1.0); MONOCYTES % (AUTO) 7.4 %; NEUTROPHILS # (AUTO) 3.4 10^3/uL (1.5-6.6); PLT - PLATELET COUNT 331 10^3/uL (130-450); RED BLOOD COUNT 4.83 10^6/uL (4.20-5.40); RED CELL DISTRIBUTION WIDTH 13.7 % (12.0-15.0); WHITE BLOOD COUNT 5.9 x10^3/uL (4.8-10.8)
== END 2023-12-17 08:47 | disposition home or self-care (01) ==
LOC: LAB.N 08:46
PROVIDERS: ATTEND Physician Assistant
DX: R05.8 Other specified cough (principal); U07.1 COVID-19
CPT/HCPCS: 36415; 85025

== ENCOUNTER 2023-12-17 08:50 | Outpatient (CLI) | payer MEDICARE ==
--- NOTE | 2023-12-17 11:36 | XRAY Report ---
PROCEDURE: Chest 2V INDICATIONS: COVID-19 INFECTION / COUGH TECHNIQUE: 2 views of the chest were acquired. COMPARISON: CT chest dated 12/25/2022 and chest radiograph dated 04/12/2019. FINDINGS: Surgical changes and devices: None. Lungs and pleura: No pleural effusions or pneumothorax. Lungs are clear. Mediastinum: Mediastinal contours appear normal. Heart size is normal. Bones and chest wall: No suspicious bony lesions. Overlying soft tissues appear unremarkable. IMPRESSION: No acute cardiopulmonary process. Reviewed by: Sam Ac MD on 12/17/2023 11:35 AM PDT Approved by: Sam Ac MD on 12/17/2023 11:35 AM PDT Station ID: [id number]
== END 2023-12-17 08:51 | disposition home or self-care (01) ==
LOC: DI.N 08:50
PROVIDERS: ATTEND Physician Assistant
DX: U07.1 COVID-19 (principal); R05.9 Cough, unspecified

== ENCOUNTER 2023-12-31 08:00 | Outpatient (CLI) | payer MEDICARE | END 2023-12-31 08:01 | disposition home or self-care (01) | LOC: LAB.N 08:00 | PROVIDERS: ATTEND Physician Assistant | DX: J06.9 Acute upper respiratory infection, unspecified (principal) ==

== ENCOUNTER 2024-01-01 15:54 | Outpatient (CLI) | payer MEDICARE ==
--- NOTE | 2024-01-01 21:28 | CT Report ---
PROCEDURE: Lung Cancer Screen INDICATIONS: NICOTINE DEPENDENCE TECHNIQUE: A CT scan of the chest was performed. Intravenous contrast media was not administered. Images were re corded and evaluated at appropriate window settings. Reformats: axial MIP of the chest, coronal and s agittal. For radiation dose reduction, the following was used: automated exposure control, adjustment of mA and/or kV according to patient size. COMPARISON: Lung cancer screening chest CT 12/25/2022. FINDINGS: Image quality: Excellent. Prior cancer history: Yes. Lungs and pleura: No pleural effusions. No pneumothorax. No suspicious pulmonary nodules which requir e follow up. A few small calcified granulomas. Mediastinum: Heart size is normal. No pericardial effusion. No large vessel abnormality. No mediastin al adenopathy by size criteria. Chest wall and lower neck: No significant thyroid nodules. The left thyroid gland is asymmetrically l arger than the right. No axillary or supraclavicular adenopathy by size. Heterogeneous calcification in the left breast. Left axillary clips. Suspect treated breast cancer. Bones: No aggressive osseous abnormality. Upper Abdomen: Unremarkable. IMPRESSION: Lung RAD: 1 - Negative. Recommendation: Continue annual screening in 12 Months with LDCT Non-Lung Significant Findings: None. No adenopathy. Postsurgical changes in the left breast and axilla. Reviewed by: Mitchell Meza MD on 01/01/2024 9:27 PM PDT Approved by: Mitchell Meza MD on 01/01/2024 9:27 PM PDT Station ID: [id number]
== END 2024-01-01 15:55 | disposition home or self-care (01) ==
LOC: DI 15:54
PROVIDERS: ATTEND Physician Assistant
DX: Z12.2 Encounter for screening for malignant neoplasm of respiratory organs (principal); F17.210 Nicotine dependence, cigarettes, uncomplicated

== ENCOUNTER 2024-01-16 08:30 | Outpatient (CLI) | payer MEDICARE ==
--- NOTE | 2024-01-16 13:01 | XRAY Report ---
PROCEDURE: Elbow 1-2V RT INDICATIONS: ELBOW JOINT PAIN, RIGHT TECHNIQUE: 2 views of the elbow were acquired. COMPARISON: None. FINDINGS: Bones: No fractures or dislocations. No suspicious bony lesions. Soft tissues: No effusion. No suspicious soft tissue calcifications or masses. IMPRESSION: No acute bony abnormality. No significant effusion. Reviewed by: Petar Vann MD on 01/16/2024 1:00 PM PDT Approved by: Petar Vann MD on 01/16/2024 1:00 PM PDT Station ID: [id number]
== END 2024-01-16 08:31 | disposition home or self-care (01) ==
LOC: DI.N 08:30
PROVIDERS: ATTEND Physician Assistant Medical
DX: M25.521 Pain in right elbow (principal)

== ENCOUNTER 2024-03-03 08:13 | Outpatient (CLI) | payer MEDICARE ==
[2024-03-03 12:59] LABS: BASOPHILS % (AUTO) 0.6 %; EOSINOPHILS % (AUTO) 0.5 %; HCT - HEMATOCRIT 45.9 % (37.0-47.0); HGB - HEMOGLOBIN 14.8 g/dL (12.0-16.0); LYMPHOCYTES # (AUTO) 1.9 10^3/uL (1.5-3.5); LYMPHOCYTES % (AUTO) 30.4 %; MEAN CORPUSCULAR HEMOGLOBIN 29.2 pg (27.0-31.0); MEAN CORPUSCULAR HGB CONC 32.2 g/dL (32.0-36.0); MEAN CORPUSCULAR VOLUME 90.7 fL (81.0-99.0); MEAN PLATELET VOLUME 10.2 fL (7.9-10.8); MONOCYTES # (AUTO) 0.4 10^3/uL (0.0-1.0); MONOCYTES % (AUTO) 5.6 %; NEUTROPHILS # (AUTO) 3.9 10^3/uL (1.5-6.6); NEUTROPHILS % (AUTO) 62.7 %; PLT - PLATELET COUNT 298 10^3/uL (130-450); RED BLOOD COUNT 5.06 10^6/uL (4.20-5.40); RED CELL DISTRIBUTION WIDTH 13.7 % (12.0-15.0); WHITE BLOOD COUNT 6.2 x10^3/uL (4.8-10.8)
[2024-03-03 13:11] LABS: ALBUMIN/GLOBULIN RATIO 1.6 (1.0-2.2); BILIRUBIN,TOTAL 0.6 mg/dL (0.2-1.0); CALCIUM 10.2 mg/dL (8.5-10.3); CREATININE 0.7 mg/dL (0.6-1.3); POTASSIUM 4.2 mmol/L (3.5-4.5); TOTAL PROTEIN 8.1 g/dL (6.4-8.9)
[2024-03-03 13:16] LABS: THYROID STIMULATING HORMONE 0.72 uIU/mL (0.34-5.60)
[2024-03-03 13:56] LABS: RHEUMATOID FACTOR NEGATIVE (Negative)
[2024-03-04 04:09] LABS: VITAMIN D 25-HYDROXY 20.8 ng/mL (30.0-100.0)
== END 2024-03-03 08:14 | disposition home or self-care (01) ==
LOC: LAB.N 08:13
PROVIDERS: ATTEND Physician Assistant
DX: M25.50 Pain in unspecified joint (principal); E55.9 Vitamin D deficiency, unspecified; E03.9 Hypothyroidism, unspecified
CPT/HCPCS: 36415; 80053; 82306; 84439; 84443; 85025; 86038; 86200; 86430